=== PATIENT | female | born 1990 | race American Indian/Alaskan Native ===

== ENCOUNTER 2017-06-26 06:27 | Outpatient (CLI) | payer MEDICAID ==
[2017-06-26 06:40] VITALS: BP 114/60
[2017-06-26] MEDS ORDERED: VISTARIL PO PRN (09:00)
== END 2017-06-26 08:37 | disposition home or self-care (01) ==
LOC: TRG 06:27
PROVIDERS: ATTEND Obstetrics & Gynecology
DX: O62.9 Abnormality of forces of labor, unspecified (principal); Z87.891 Personal history of nicotine dependence; Z3A.38 38 weeks gestation of pregnancy
CPT/HCPCS: 59025; Q0177

== ENCOUNTER 2017-06-27 00:52 | Inpatient (IN) | payer MEDICAID ==
[2017-06-27] MEDS ORDERED: LACTATED RINGERS 2,000 ML ONE (01:37)
[2017-06-27] MEDS ORDERED: POLYCILLIN/NS 2 GM/100 ML 2 GM/100 ML BAG IV ONE (01:44)
[2017-06-27] MEDS ORDERED: LACTATED RINGERS 1,000 ML IV SCH ×2 (01:47→03:00)
[2017-06-27] MEDS ORDERED: SUBLIMAZE IV PRN (02:01)
[2017-06-27] MEDS ORDERED: ZOFRAN IV PRN ×2 (02:01→04:44)
[2017-06-27] MEDS ORDERED: BRETHINE IVP PRN (02:01)
[2017-06-27] MEDS ORDERED: MINERAL OIL PO PRN (02:01)
[2017-06-27] MEDS ORDERED: PHENERGAN PR PRN ×2 (02:01→04:44)
[2017-06-27] MEDS ORDERED: BRETHINE SUB-Q PRN (02:01)
[2017-06-27] MEDS ORDERED: STADOL IV PRN (02:01)
[2017-06-27] MEDS ORDERED: ePHEDrine SULFATE IV PRN ×2 (02:01→03:35)
[2017-06-27] MEDS ORDERED: XYLOCAINE 2% INFILTRATI ONE (02:01)
--- NOTE | 2017-06-27 02:27 | History and Physical Report ---
History of Present Illness Date of examination: 06/27/17 Date of admission: 06/27/17 01:20 Chief complaint: 26 yo at term in active labor. Known asthma and sickle trait. A pos, R-I, GBS pos History of present illness: Remainder of H&P from [facility] and confirmed today CC: pelvic pain. History of Present Illness: This is a 26 years old female who presents with pelvic pain. She complains of nausea, but denies dysuria, dysmenorrhea, dyspareunia, vaginal itching, vaginal discharge, vaginal odor, painful bowel movements, constipation , diarrhea, vomiting, back pain and fever. Pain is located suprapubic. She describes the pain as cramping. Episodes are intermittent. OB Intake Father of baby: Buzz Sharp FOB contact #: [phone] Vital Signs Height: 64 in. Weight (lb): 142 BMI: 24.4 Pre- Weight: 142 BP: 112/ 70 mm Hg Ur. Protein: Negative Ur. Glucose: Negative Chief Complaint/Current Status: c/o missed period........................igarcia pt sts she had AB on 09/14/2016 lmp 09/27/2016 Menstrual History Duration: 7 LMP: 09/27/2016 LMP reliability: unknown LMP character: heavier test type: urine test Date: 12/03/2016 BC at conception: none Planned ? no EDC Calculations LMP: 07/04/2017 EDC Confirmation: 07/04/2017 Gestational Age: 9 4/7 weeks Past History : 5 Term Births: 2 Premature Births: 0 Living Children: 2 Para: 2 Mult. Births: 0 Prev : 0 Aborta: 2 Elect. Ab: 1 Spont. Ab: 1 Ectopics: 0 # 1 Delivery date: 2008 Weeks Gestation: 10 Delivery type: SAB Anesthesia type: - Delivery location: - Sex: - weight: - Comments: - # 2 Delivery date: 01/25/2012 Weeks Gestation: 40 labor: no Delivery type: Vaginal Anesthesia type: epidural Delivery location: [facility] Sex: female weight: 6.61 Comments: - # 3 Delivery date: 10/01/2015 Weeks Gestation: 40 labor: no Delivery type: Anesthesia type: epidural Delivery location: [facility] Infant Sex: Female weight: 6.63 Comments: Meconium # 4 Delivery date: 09/14/2016 Delivery type: EAB Past Medical History: Reviewed history from 03/22/2015 and no changes required: Asthma Scikle cell trait + Past Surgical History: negative D&C: (08/2016) Family History Summary: Reviewed history Last on 03/22/2015 and no changes required:12/23/2016 Other family member - Has No Family History of Breast Cancer - Entered On: 2014 Other family member - Has No Family History of Cervical Cancer - Entered On: Other family member - Has No Family History of Colon Cancer - Entered On: 2014 Other family member - Has No Family History of Diabetes - Entered On: 03/22/2015 Other family member - Has No Family History of Hypertension - Entered On: 2014 Other family member - Has No Family History of Ovarvian Cancer - Entered On: General Comments - FH: MGM- Stomach Cancer MGF- stomach Cancer Social History: negative 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 Infection History Hx of STD: chlamydia Personal hx. of genital herpes: no Partner hx. of genital herpes: no Genetic History Congenital Heart Defect: Mom: no Dad: no Rachel Disease: Mom: no Dad: no Thalassemia Mom: no Dad: no Neural Tube Defect Mom: no Dad: no Down's Syndrome Mom: no Dad: no Pj-Sachs Mom: no Dad: no Sickle Cell Disease/Trait Mom: yes Dad: no Hemophilia Mom: no Dad: no Muscular Dystrophy Mom: no Dad: no Cystic Fibrosis Mom: no Dad: no Ba Chorea Mom: no Dad: no Mental Retardation Mom: no Dad: no Fragile X Mom: no Dad: no Other Genetic/Chromosomal Disorder Mom: no Dad: no Child w/other defect Mom: no Dad: no Active Medications (reviewed today): FORMULA 27-1 MG ORAL TABS ( VIT-FE FUMARATE-FA) 1 po q day as directed DICLEGIS 10-10 MG TBEC (DOXYLAMINE-PYRIDOXINE) 2 tabs po qhs Current Allergies (reviewed today): No known allergies Laboratory Results Date/Time Collected: 12/03/2016 Routine Urinalysis Protein: Negative Glucose: Negative Urine HCG: positive Review of Systems General Complains of fatigue. Denies fever, chills, sweats, anorexia, weakness, malaise, weight loss and sleep disorder. Complains of abnormal vaginal bleeding and painful periods. Denies vaginal discharge, incontinence, dysuria, hematuria, urinary frequency, amenorrhea, menorrhagia, pelvic pain, genital sores, decreased libido , painful sex, urinary urgency, hot flashes, vaginal dryness, vaginal itching and vaginal odor. CV Denies chest pains, palpitations, syncope, dyspnea on exertion, orthopnea, PND and peripheral edema. Resp Denies cough, dyspnea at rest, excessive sputum, hemoptysis, wheezing and pleurisy. GI Complains of nausea. Denies vomiting, diarrhea, constipation, change in bowel habits, abdominal pain, melena, hematochezia, jaundice, gas/bloating, indigestion/heartburn, dysphagia and odynophagia. Breast Complains of breast pain. Denies left breast lump, right breast lump, nipple discharge, bloody discharge from nipple, abnormal mammogram and breast enlargement. Psych Denies depression, anxiety, irritability and mood swings. 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 Cervix: normal appearance, no lesions. Uterus: enlarged uterus 8 - 10 weeks size Adnexae: no masses or tenderness Rectovaginal: exam defered Flowsheet View for Follow-up Visit Estimated weeks of gestation: 9 10/05 Weight: 142 Blood pressure: 112 / 70 Urine protein: Negative Urine glucose: Negative Smoking PPD: 3cigs Past History - Obstetrical History : 5 Medications and Allergies Allergies Allergy/AdvReac Type Severity Reaction Status Date / Time latex AdvReac SKIN Verified 02/27/15 10:13 IRRITATION Home Medications Medication Instructions Recorded Confirmed Last Taken Type Naproxen [Naprosyn] 500 mg PO BID #20 tablet 05/06/13 10/02/15 Unknown Rx methOCARBAMOL [Robaxin] 500 mg PO BID PRN #20 tab 05/06/13 10/02/15 Unknown Rx metroNIDAZOLE [Flagyl] 500 mg PO BID #14 tablet 05/06/13 10/02/15 Unknown Rx Cyclobenzaprine [Flexeril 10mg] 10 mg PO BID PRN #6 tablet 09/03/14 10/02/15 Unknown Rx Ibuprofen [Motrin 400 MG tab] 400 mg PO Q8H PRN #10 tablet 09/03/14 10/02/15 Unknown Rx Ranitidine HCl [Zantac] 300 mg PO QDAY #15 tablet 09/03/14 10/02/15 Unknown Rx Famotidine [Pepcid] 20 mg PO BID #40 tablet 03/06/15 10/02/15 Unknown Rx Ondansetron [Zofran TAB] 4 mg PO Q8HR PRN #20 tablet 03/06/15 10/02/15 Unknown Rx Promethazine [Phenergan] 12.5 mg DC Q6H PRN #20 supp.rect 03/06/15 10/02/15 Unknown Rx Active Meds: Active Medications Butorphanol Tartrate (Stadol) 2 mg IV Q2H PRN PRN Reason: Pain , Severe (7-10) Ephedrine Sulfate (Ephedrine Sulfate) 10 mg IV Q2M PRN PRN Reason: Hypotension Fentanyl (Sublimaze) 100 mcg IV Q2H PRN PRN Reason: Labor Pain Last Admin: 12/28/17 02:17 Dose: 100 mcg Ampicillin Sodium (Polycillin/Ns 2 Gm/100 Ml) 2 gm in 100 mls @ 100 mls/hr IV ONCE ONE Stop: 06/27/17 02:43 Last Admin: 06/27/17 02:00 Dose: 100 mls/hr Lactated Ringer's (Lactated Ringers) 1,000 mls @ 125 mls/hr IV DIRECT MAGDALENA Last Admin: 06/27/17 02:18 Dose: 125 mls/hr Oxytocin/Sodium Chloride (Pitocin/Ns 20 Unit/1000ml Drip) 20 units in 1,000 mls @ 125 mls/hr IV DIRECT MAGDALENA Oxytocin/Sodium Chloride (Pitocin/Ns 30 Unit/500ml) 30 units in 500 mls @ 0 mls /hr IV TITR MAGDALENA; Per Protocol PRN Reason: Protocol Oxytocin/Sodium Chloride (Pitocin/Ns 30 Unit/500ml) 30 units in 500 mls @ 1 mls /hr IV TITR MAGDALENA; 1 MILLIUNITS/MIN PRN Reason: Protocol Mineral Oil (Mineral Oil) 30 ml PO QHS PRN PRN Reason: Constipation Ondansetron HCl (Zofran) 4 mg IV Q8H PRN PRN Reason: Nausea And Vomiting Promethazine HCl (Phenergan) 25 mg DC Q6H PRN PRN Reason: N/V if unable to take po Terbutaline Sulfate (Brethine) 0.25 mg SUB-Q ONCE PRN PRN Reason: Hyperstimulation/Hypertonicity Terbutaline Sulfate (Brethine) 0.25 mg IVP ONCE PRN PRN Reason: Hyperstimulation/Hypertonicity - Vital Signs Vital signs: Vital Signs Pulse BP 113 H 103/65 06/27/17 01:08 06/27/17 01:08 Temp Pulse Resp BP Pulse Ox 98.0 F 98 H 18 103/65 100 06/27/17 01:09 06/27/17 02:15 06/27/17 01:09 06/27/17 01:08 06/27/17 02:15 Results All other labs normal. Assessment and Plan - Patient Problems (1) Active labor at term Current Visit: No Status: Acute (2) GBS (group B Streptococcus carrier), +RV culture, currently Current Visit: Yes Status: Acute (3) Sickle cell trait Current Visit: No Status: Chronic (4) Asthma Current Visit: No Status: Chronic Qualifiers: Asthma complication type: uncomplicated
[2017-06-27 02:32] LABS: Hematocrit 32.2 % (30.3-42.9); Hemoglobin 10.5 gm/dl (10.1-14.3); Mean Corpuscular HGB Conc 33 % (30-34); Mean Corpuscular Volume 75 fl (79-97); Platelet Count 221 K/mm3 (140-440); Red Blood Count 4.32 M/mm3 (3.65-5.03); Red Cell Distribution Width 16.4 % (13.2-15.2)
[2017-06-27 02:33] LABS: Mean Corpuscular Hemoglobin 24 pg (28-32)
[2017-06-27] MEDS ORDERED: PITOCin/NS 20 UNIT/1000ML DRIP 20 UNITS/1,000 ML BAG IV SCH (03:00)
[2017-06-27] MEDS ORDERED: PITOCin/NS 30 UNIT/500ML 30 UNITS/500 ML BAG IV SCH ×2 (03:00)
[2017-06-27] MEDS ORDERED: NARCAN 2 MG/2 ML IV PRN (03:35)
--- NOTE | 2017-06-27 03:35 | Anesthesia Consultation ---
Anesthesia Consult and Med Hx Date of service: 06/27/17 - Airway Anesthetic Teeth Evaluation: Good ROM Head & Neck: Adequate Mental/Hyoid Distance: Adequate Mallampati Class: Class II Intubation Access Assessment: Probably Good - Pulmonary Exam CTA: Yes - Cardiac Exam Cardiac Exam: RRR - Pre-Operative Health Status ASA Pre-Surgery Classification: ASA2 Proposed Anesthetic Plan: Epidural, Spinal - Pulmonary Hx Asthma: Yes (last asthamatic attack- 6 yrs ago) COPD: No Hx Pneumonia: No - Cardiovascular System Hx Hypertension: No - Central Nervous System Hx Seizures: No Hx Psychiatric Problems: No - Endocrine Hx Renal Disease: No Hx End Stage Renal Disease: No Hx Hypothyroidism: No Hx Hyperthyroidism: No - Hematic Hx Anemia: Yes Hx Sickle Cell Disease: Yes (trait) - Other Systems Hx Alcohol Use: No Hx Obesity: Yes - Additional Comments Anesthesia Medical History Comments: IUP
[2017-06-27] MEDS ORDERED: fentaNYL-BUPIV 2 MCG/ML-0.125% 200 MCG/100 ML BAG EPIDURAL SCH (04:00)
--- NOTE | 2017-06-27 04:42 | Procedure Note ---
OB Delivery Note - Delivery Date of Delivery: 06/27/17 Surgeon: KAUSHIK MOHAN Estimated blood loss: 300cc - Vaginal Delivery presentation: vertex Delivery position: OA Intrapartum events: mult.variable deceleratio Delivery induction: none Delivery augmentation: rupture of membranes Delivery monitor: external FHT, external uterine Route of delivery: Delivery placenta: spontaneous Delivery cord: 3 umbilical vessels Episiotomy: none Delivery laceration: none Anesthesia: epidural - A at 1 minute: 8 (7#14oz) at 5 minutes: 9 Gender: Male
[2017-06-27] MEDS ORDERED: MILK OF MAGNESIA PO PRN (04:44)
[2017-06-27] MEDS ORDERED: PHENERGAN PO PRN (04:44)
[2017-06-27] MEDS ORDERED: TUCKS PAD TP PRN (04:44)
[2017-06-27] MEDS ORDERED: LANSINOH TP PRN (04:44)
[2017-06-27] MEDS ORDERED: TYLENOL PO PRN (04:44)
[2017-06-27] MEDS ORDERED: DULCOLAX PR PRN (04:44)
[2017-06-27] MEDS ORDERED: BENADRYL PO PRN (04:44)
[2017-06-27] MEDS ORDERED: SODIUM CHLORIDE FLUSH SYRINGE 10 ML IV PRN (05:00)
[2017-06-27] MEDS: NORCO 5/325 PO PRN ×3 (08:57→22:30)
[2017-06-27 16:47] LABS: Hematocrit 26.6 % (30.3-42.9); Hemoglobin 8.5 gm/dl (10.1-14.3)
[2017-06-27] MEDS: MOTRIN PO SCH ×2 (18:02→23:41)
[2017-06-28] MEDS: MOTRIN PO SCH ×4 (05:13→23:34)
[2017-06-28] MEDS ORDERED: BOOSTRIX IM ONE (06:00)
--- NOTE | 2017-06-28 08:13 | Progress Note ---
Assessment and Plan patient doing well, no complaints, desires d/c home today. without concern. VSSAF. H&H droped to 8.5/26.6, pt is asymptomatic. acute anemia d/t blood loss. Lochia scant. Plan for d/c home today with routine f/u in office. - Patient Problems (1) Spontaneous vaginal delivery Current Visit: No Status: Acute Subjective - Subjective Date of service: 06/28/17 Principal diagnosis: day #1 s/p Patient reports: appetite normal, voiding normally, pain well controlled, ambulating normally, no dizzy ambulation, no nauseated [place]: doing well, nursing well Objective - Vital Signs Latest vital signs: Vital Signs Temp Pulse Resp BP BP Pulse Ox 06/28/17 00:20 98.0 F 69 18 90/49 06/27/17 22:30 18 06/27/17 16:49 98.6 F 72 18 101/51 99 06/27/17 08:33 98.3 F 89 18 103/52 98 Intake and Output 06/27/17 06/28/17 06/28/17 23:59 07:59 15:59 Intake Total 740 240 Balance 740 240 Intake: Oral 600 240 Intake, Free Water 140 Other: Total, Intake Amount 240 240 # Voids Indwelling Catheter 2 1 - Exam Breasts: Present: normal Cardiovascular: Present: Regular rate Lungs: Present: Clear to auscultation, Normal air movement Abdomen: Present: normal appearance, soft Vulva: both: normal Uterus: Present: normal, firm, fundal height at umbilicus Extremities: Present: normal Deep Tendon Reflex Grade: Normal +2 - Labs Labs: Abnormal lab results 06/27/17 Range/Units 16:11 Hgb 8.5 L (10.1-14.3) gm/dl Hct 26.6 L (30.3-42.9) %
--- NOTE | 2017-06-28 08:15 | Discharge Summary ---
Providers - Providers Date of Admission: 06/27/17 01:20 Date of discharge: 06/28/17 (desires d/c home) Attending physician: KAUSHIK MOHAN 06/27/17 04:47 Consult to Physical Chemistry Teacher [CONS] Routine Reason For Exam: assistance with , SNS Primary care physician: KAUSHIK MOHAN Hospitalization Reason for admission: active labor Delivery: Episiotomy: none Laceration: none Other procedures: none complications: none Discharge diagnosis: IUP at term delivered baby: male Hospital course: uncomplicated vaginal delivery Condition at discharge: Good Disposition: DC-01 TO HOME OR SELFCARE - Discharge Diagnoses (1) Spontaneous vaginal delivery Status: Acute Comment: RTO 4 weeks for PP care Plan - Discharge Medications Prescriptions: Ferrous Sulfate [Feosol 325 MG tab] 325 mg PO TID #90 tablet Ibuprofen [Motrin 600 MG tab] 600 mg PO Q8H PRN #30 tablet PRN Reason: Pain Lidocain2.5%/Prilocai2.5% [Emla] 5 gm TP 1XW #1 tube - Provider Discharge Summary Activity: routine, no sex for 6 weeks, no heavy lifting 4 weeks, no strenuous exercise Diet: routine Instructions: routine Additional instructions: [] Smoking cessation referral if applicable(refer to patient education folder for contact #) [] Refer to [facility] Booklet Call your doctor immediately for: * Fever > 100.5 * Heavy vaginal bleeding ( >1 pad per hour) * Severe persistent headache * Shortness of breath * Reddened, hot, painful area to leg or breast * Drainage or odor from incision. * Keep incision clean and dry at all times and follow doctor's instructions regarding bathing/showering - Follow up plan Follow up: KAUSHIK MOHAN MD [Primary Care Provider] - 7 Days (Congratulations! Please call [phone] to schedule your son's circumcision in 1 week and your visit in 4 weeks. Bring EMLA cream to your son's appointment and await further instructions. Call for any questions or concerns. )
[2017-06-28] MEDS: NORCO 5/325 PO PRN (12:25)
[2017-06-29] MEDS: MOTRIN PO SCH (05:21)
[2017-06-29 12:14] VITALS: BP 107/71
== END 2017-06-29 12:15 | disposition home or self-care (01) | DRG 775 ==
LOC: TRG 00:52 → LD 01:20 → TRG 01:20 → OB 06:45
PROVIDERS: ADMIT Obstetrics & Gynecology; ATTEND Obstetrics & Gynecology
PROC: 10E0XZZ Delivery of Products of Conception, External Approach (ICD-10-PCS; principal; 2017-06-27)
PROC: 3E0R3BZ Introduction of Anesthetic Agent into Spinal Canal, Percutaneous Approach (ICD-10-PCS; 2017-06-27)
PROC: 00HU33Z Insertion of Infusion Device into Spinal Canal, Percutaneous Approach (ICD-10-PCS; 2017-06-27)
DX: O99.824 Streptococcus B carrier state complicating childbirth (principal); Z3A.00 Weeks of gestation of pregnancy not specified; Z37.0 Single live birth; O99.02 Anemia complicating childbirth; D57.3 Sickle-cell trait; D62 Acute posthemorrhagic anemia; O99.52 Diseases of the respiratory system complicating childbirth; J45.909 Unspecified asthma, uncomplicated; O76 Abnormality in fetal heart rate and rhythm complicating labor and delivery; O99.214 Obesity complicating childbirth; E66.9 Obesity, unspecified; Z80.8 Family history of malignant neoplasm of other organs or systems; Z91.040 Latex allergy status; Z79.899 Other long term (current) drug therapy; Z68.30 Body mass index [BMI] 30.0-30.9, adult
CPT/HCPCS: 36415; 85014; 85018; 85027; 86592; 86850; 86900; 86901; 90471; 90715; 99211; G0463; J0290; J2590; J3010; J7120

== ENCOUNTER 2017-07-09 07:51 | Inpatient (IN) | payer MEDICAID ==
--- NOTE | 2017-07-09 08:43 | Cat Scan Report ---
CT HEAD WITHOUT CONTRAST: HISTORY: neurological deficits. TECHNIQUE: Sequential 2.5mm CT images. COMPARISON: none. FINDINGS: Cerebral Parenchyma: Within normal limits. Cerebellum: Within normal limits. Brainstem: Within normal limits. Ventricles: Normal. Sella: Normal. Extra-axial spaces: Normal. Basal Cisterns: Normal. Intracranial Hemorrhage: None. Midline Shift: None. Calvarium: Normal. Sinuses: Normal. Mastoid Air Cells: Normal. Visualized Orbits: Normal. IMPRESSION: Cranial CT scan within normal limits.
[2017-07-09 10:20] LABS: Basophils % (Auto) 0.5 % (0.0-1.8); Eosinophils # (Auto) 0.1 K/mm3 (0.0-0.4); Eosinophils % (Auto) 0.9 % (0.0-4.3); Hematocrit 38.3 % (30.3-42.9); Hemoglobin 12.2 gm/dl (10.1-14.3); Lymphocytes # (Auto) 1.9 K/mm3 (1.2-5.4); Lymphocytes % (Auto) 21.2 % (13.4-35.0); Mean Corpuscular HGB Conc 32 % (30-34); Mean Corpuscular Volume 74 fl (79-97); Monocytes # (Auto) 0.4 K/mm3 (0.0-0.8); Monocytes % (Auto) 4.3 % (0.0-7.3); Platelet Count 273 K/mm3 (140-440); Red Blood Count 5.15 M/mm3 (3.65-5.03); Red Cell Distribution Width 16.3 % (13.2-15.2)
[2017-07-09 10:30] LABS: INR 0.88 (0.87-1.13)
[2017-07-09 10:31] LABS: BUN/Creatinine Ratio 16; Blood Urea Nitrogen 11 mg/dL (7-17); Calcium 8.6 mg/dL (8.4-10.2); Hemolysis Index 6; Mean Corpuscular Hemoglobin 24 pg (28-32); Partial Thromboplastin Time 27.2 Sec. (24.2-36.6)
[2017-07-09 10:32] LABS: Alanine Aminotransferase 13 units/L (7-56); Albumin 3.9 g/dL (3.9-5)
[2017-07-09 10:37] LABS: Bilirubin,Direct < 0.2 mg/dL (0-0.2)
[2017-07-09] MEDS ORDERED: ATIVAN ONE (11:51)
[2017-07-09] MEDS ORDERED: ATIVAN IV ONE ×2 (11:56→12:02)
[2017-07-09] MEDS ORDERED: MAGNESIUM SULFATE 2GM/50ML 2 GM/50 ML BAG IV ONE (11:57)
[2017-07-09] MEDS ORDERED: MAGNESIUM SULFATE 4GM/100ML 4 GM/100 ML BAG IV ONE (12:00)
[2017-07-09] MEDS ORDERED: MAGNESIUM SULFATE 40GM/1000ML 40 GM/1,000 ML BAG IV ONE (12:00)
--- NOTE | 2017-07-09 12:11 | Emergency Department Report ---
ED Headache HPI - General Chief Complaint: Dizziness Stated Complaint: DIZZINESS, HUTSON, POST PREG Time Seen by Provider: 07/09/17 11:56 Source: family, RN notes reviewed, old records Exam Limitations: other (ams postictal) - History of Present Illness Initial Comments: 26 yo female with a past medical history of asthma who is currently 2 weeks presented to the hospital complaints of dizziness and headache. Patient did have an epidural. I was called to room because patient was seizing. I did not have opportunity to speak to patient prior to mental status deterioration. Family member (boyfriends grandmother) at the bedside states that patient developed a headache this morning with complaints of dizziness and blurred vision. Blood pressure status during her unknown. No known history of high blood pressure. Patient post ictal upon my evaluation then became agitated and confused and required IV Ativan. Mag drip ordered. Dr. Dr Mccarty with HOME CARE NURSE contacted for Eclampsia Medical record review. Patient delivered here. No previous hypertension noted on pervious vital sign Allergies/Adverse Reactions: Allergies latex Adverse Reaction (Verified 02/27/15 10:13) SKIN IRRITATION Home Medications: Ambulatory Orders No Known Home Medications [No Reported Home Medications] 07/09/17 ED Review of Systems ROS: Stated complaint: DIZZINESS, HUTSON, POST PREG Other details as noted in HPI Comment: Unobtainable due to pts medical conditions ED Past Medical Hx - Past Medical History Previous Medical History?: Yes Hx Hypertension: No Hx Congestive Heart Failure: No Hx Diabetes: No Hx Deep Vein Thrombosis: No Hx Renal Disease: No Hx Sickle Cell Disease: Yes (trait) Hx Seizures: No Hx Asthma: Yes (last asthamatic attack- 6 yrs ago) Hx COPD: No Hx HIV: No Additional medical history: HEART MURMUR, Vaginal delivery - Surgical History Past Surgical History?: No - Social History Smoking Status: Never Smoker Substance Use Type: Non Opiate Pain - Medications Home Medications: Home Medications Medication Instructions Recorded Confirmed Last Taken Type No Known Home Medications [No 07/09/17 07/09/17 Unknown History Reported Home Medications] ED Physical Exam - General Limitations: No Limitations - Other Other exam information: General: Limited, post ictal Head exam: Atraumatic Eyes exam: Normal appearance, pupils equal reactive to light ENT: Moist mucous membrane, normal oropharynx Neck exam: Normal inspection, full range of motion, no meningismus nontender Respiratory exam: Clear to auscultation bilateral Cardiovascular: Tachycardic regular rhythm Abdomen: Soft, nondistended, and nontender, with normal bowel sounds, no rebound, or guarding Extremity: Full range of motion normal inspection no deformity Back: Normal Inspection, full range of motion, no tenderness Neurologic: Altered, combative, 5/5 strength bilaterally (pt required restraints ), sensation grossly intact Psychiatric: normal affect, normal mood Skin: Warm, dry, intact ED Course Vital Signs 07/09/17 07/09/17 07/09/17 08:00 11:31 12:15 Temperature 98.1 F 98.9 F Pulse Rate 84 79 113 H Respiratory 18 18 22 Rate Blood Pressure 140/102 Blood Pressure 141/98 118/83 [Left] O2 Sat by Pulse 98 100 96 Oximetry 07/09/17 07/09/17 07/09/17 13:00 13:30 14:00 Temperature Pulse Rate 93 H 92 H 99 H Respiratory 15 16 19 Rate Blood Pressure Blood Pressure 144/88 135/88 121/79 [Left] O2 Sat by Pulse 96 97 97 Oximetry 07/09/17 07/09/17 07/09/17 15:00 17:00 18:00 Temperature Pulse Rate 92 H 80 78 Respiratory 14 11 L 13 Rate Blood Pressure Blood Pressure 114/57 113/87 127/79 [Left] O2 Sat by Pulse 97 98 99 Oximetry 07/09/17 19:27 Temperature 98.6 F Pulse Rate 81 Respiratory 14 Rate Blood Pressure Blood Pressure 130/81 [Left] O2 Sat by Pulse 99 Oximetry - Reevaluation(s) Reevaluation #1: 07/09/17 12:12 Ativan given. Magnesium bolus and drip ordered - Consultations Consultation #1: 07/09/17 12:07 Dr Mccarty in Ed to mukul pt. ED Medical Decision Making - Lab Data Result diagrams: 07/09/17 09:40 07/09/17 09:40 Lab Results 07/09/17 07/09/17 07/09/17 Range/Units 09:40 09:40 09:40 WBC 8.9 (4.5-11.0) K/mm3 RBC 5.15 H (3.65-5.03) M/mm3 Hgb 12.2 (10.1-14.3) gm/dl Hct 38.3 (30.3-42.9) % MCV 74 L (79-97) fl MCH 24 L (28-32) pg MCHC 32 (30-34) % RDW 16.3 H (13.2-15.2) % Plt Count 273 (140-440) K/mm3 Lymph % (Auto) 21.2 (13.4-35.0) % [place] % (Auto) 4.3 (0.0-7.3) % Eos % (Auto) 0.9 (0.0-4.3) % Baso % (Auto) 0.5 (0.0-1.8) % Lymph # 1.9 (1.2-5.4) K/mm3 [place] # 0.4 (0.0-0.8) K/mm3 Eos # 0.1 (0.0-0.4) K/mm3 Baso # 0.0 (0.0-0.1) K/mm3 Seg Neutrophils % 73.1 H (40.0-70.0) % Seg Neutrophils # 6.5 (1.8-7.7) K/mm3 PT 12.4 (12.2-14.9) Sec. INR 0.88 (0.87-1.13) APTT 27.2 (24.2-36.6) Sec. Thrombin Time (15.1-19.6) Sec. Sodium 140 (137-145) mmol/L Potassium 4.1 (3.6-5.0) mmol/L Chloride 104.0 (98-107) mmol/L Carbon Dioxide 23 (22-30) mmol/L Anion Gap 17 mmol/L BUN 11 (7-17) mg/dL Creatinine 0.7 (0.7-1.2) mg/dL Estimated GFR > 60 ml/min BUN/Creatinine Ratio 16 % Glucose 85 (65-100) mg/dL Calcium 8.6 (8.4-10.2) mg/dL Total Bilirubin (0.1-1.2) mg/dL Direct Bilirubin (0-0.2) mg/dL AST (5-40) units/L ALT (7-56) units/L Alkaline Phosphatase (35-129) units/L Lactate Dehydrogenase (91-180) units/L Troponin T < 0.010 (0.00-0.029) ng/mL Total Protein (6.3-8.2) g/dL Albumin (3.9-5) g/dL Albumin/Globulin Ratio % 07/09/17 07/09/17 Range/Units 09:40 09:40 WBC (4.5-11.0) K/mm3 RBC (3.65-5.03) M/mm3 Hgb (10.1-14.3) gm/dl Hct (30.3-42.9) % MCV (79-97) fl MCH (28-32) pg MCHC (30-34) % RDW (13.2-15.2) % Plt Count (140-440) K/mm3 Lymph % (Auto) (13.4-35.0) % [place] % (Auto) (0.0-7.3) % Eos % (Auto) (0.0-4.3) % Baso % (Auto) (0.0-1.8) % Lymph # (1.2-5.4) K/mm3 [place] # (0.0-0.8) K/mm3 Eos # (0.0-0.4) K/mm3 Baso # (0.0-0.1) K/mm3 Seg Neutrophils % (40.0-70.0) % Seg Neutrophils # (1.8-7.7) K/mm3 PT (12.2-14.9) Sec. INR (0.87-1.13) APTT (24.2-36.6) Sec. Thrombin Time 15.6 (15.1-19.6) Sec. Sodium (137-145) mmol/L Potassium (3.6-5.0) mmol/L Chloride (98-107) mmol/L Carbon Dioxide (22-30) mmol/L Anion Gap mmol/L BUN (7-17) mg/dL Creatinine (0.7-1.2) mg/dL Estimated GFR ml/min BUN/Creatinine Ratio % Glucose (65-100) mg/dL Calcium (8.4-10.2) mg/dL Total Bilirubin 0.20 (0.1-1.2) mg/dL Direct Bilirubin < 0.2 (0-0.2) mg/dL AST 17 (5-40) units/L ALT 13 (7-56) units/L Alkaline Phosphatase 101 (35-129) units/L Lactate Dehydrogenase 214 H (91-180) units/L Troponin T (0.00-0.029) ng/mL Total Protein 8.0 (6.3-8.2) g/dL Albumin 3.9 (3.9-5) g/dL Albumin/Globulin Ratio 1.0 % - EKG Data -: EKG Interpreted by Me EKG shows normal: sinus rhythm, axis (59), QRS complexes (81), ST-T waves (no stemi/t inv) Rate: normal (72) - EKG Data When compared to previous EKG there are: no significant change (09/03/14) - Radiology Data Radiology results: report reviewed CT head: No acute findings - Medical Decision Making Patient requires ICU admission for cramps. Treatment initiated ED. HOME CARE NURSE informed and will admit - Differential Diagnosis migraine, eclampsia, post epidural headache, ICH, preeclampsia, seizure Critical Care Time: No Critical care attestation.: If time is entered above; I have spent that time in minutes in the direct care of this critically ill patient, excluding procedure time. ED Disposition Clinical Impression: eclampsia Disposition: OP ADMIT IP TO THIS HOSP Is pt being admited?: Yes Condition: Stable Time of Disposition: 12:13 (Dr Mccarty/quill machine tender)
[2017-07-09] MEDS ORDERED: DILAUDID IV ONE (12:33)
[2017-07-09] MEDS ORDERED: ZOFRAN IV ONE (12:34)
[2017-07-09] MEDS ORDERED: DILAUDID IV NR (13:00)
--- NOTE | 2017-07-09 14:25 | History and Physical Report ---
History of Present Illness Date of examination: 07/09/17 Date of admission: 07/09/17 12:12 Chief complaint: Eclampsia History of present illness: This is a 26-year-old female status post vaginal delivery June 27 2017. She presented to the ED with a one-week history of severe headache that became progressively worse and associated with visual changes. During her evaluation in the ED she was noted to have elevated blood pressures and had a witnessed seizure. She is admitted now for evaluation and management of eclampsia. Past History : 5 Term Births: 3 Premature Births: 0 Living Children: 3 Para: 3 Mult. Births: 0 Prev : 0 Aborta: 2 Elect. Ab: 1 Spont. Ab: 1 Ectopics: 0 # 1 Delivery date: 2008 Weeks Gestation: 10 Delivery type: SAB Anesthesia type: - Delivery location: - Sex: - weight: - Comments: - # 2 Delivery date: 01/25/2012 Weeks Gestation: 40 labor: no Delivery type: Vaginal Anesthesia type: epidural Delivery location: [facility] Sex: female weight: 6.61 Comments: - # 3 Delivery date: 10/01/2015 Weeks Gestation: 40 labor: no Delivery type: Anesthesia type: epidural Delivery location: [facility] Sex: Female weight: 6.63 Comments: Meconium # 4 Delivery date: 09/14/2016 Delivery type: EAB #5 Delivery Date: 06/27/2017 Gestational Age: 39 weeks Anesthesia: epidural Delivery Type: Vaginal Weight: 7.88 lbs Gender: male Location: [facility] - 1 minute: 8; 5 minutes: 9 Past Medical History: Reviewed history from 03/22/2015 and no changes required: Asthma Sickle cell trait + Past Surgical History: negative D&C: (08/2016) Family History Summary: Reviewed history Last on 03/22/2015 and no changes required:12/23/2016 Other family member - Has No Family History of Breast Cancer - Entered On: 2014 Other family member - Has No Family History of Cervical Cancer - Entered On: Other family member - Has No Family History of Colon Cancer - Entered On: 2014 Other family member - Has No Family History of Diabetes - Entered On: 03/22/2015 Other family member - Has No Family History of Hypertension - Entered On: 2014 Other family member - Has No Family History of Ovarvian Cancer - Entered On: General Comments - FH: MGM- Stomach Cancer MGF- stomach Cancer Social History: negative 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: Smoked Tobacco Use: Current every day smoker Cigarettes: Yes -- 3cigs pack(s) per day, Year started: 2009 Counseled to quit/cut down: yes Drug use: yes Alcohol use: yes Drinks per day: social Dietary Counseling: pn yes Past Medical History Surgery (Non-obstetrics and gynecology professor): negative D&C: (08/2016) Abnormal PAP: positive, 01/2015 HPV+ RUBINA Exposure: negative Infertility: negative Uterine Anomaly: negative Uterine Surgery (not C/S): negative Other Gynecologic Problems: negative Social Hx: negative 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 of genital herpes: no Partner hx. of genital herpes: no Genetic History Congenital Heart Defect: Mom: no Dad: no Rachel Disease: Mom: no Dad: no Thalassemia Mom: no Dad: no Neural Tube Defect Mom: no Dad: no Down's Syndrome Mom: no Dad: no Pj-Sachs Mom: no Dad: no Sickle Cell Disease/Trait Mom: yes Dad: no Hemophilia Mom: no Dad: no Muscular Dystrophy Mom: no Dad: no Cystic Fibrosis Mom: no Dad: no Curry Chorea Mom: no Dad: no Mental Retardation Mom: no Dad: no Fragile X Mom: no Dad: no Other Genetic/Chromosomal Disorder Mom: no Dad: no Child w/other defect Mom: no Dad: no Active Medications (reviewed today): FORMULA 27-1 MG ORAL TABS ( VIT-FE FUMARATE-FA) 1 po q day as directed Current Allergies (reviewed today): No known allergies Medications and Allergies Allergies Allergy/AdvReac Type Severity Reaction Status Date / Time latex AdvReac SKIN Verified 02/27/15 10:13 IRRITATION Home Medications Medication Instructions Recorded Confirmed Last Taken Type No Known Home Medications [No 07/09/17 07/09/17 Unknown History Reported Home Medications] Active Meds: Active Medications Hydromorphone HCl (Dilaudid) 0.5 mg IV ONCE.ED NR Stop: 07/09/17 14:40 Magnesium Sulfate (Magnesium Sulfate 40gm/1000ml) 40 gm in 1,000 mls @ 50 mls/ hr IV ONCE.ED ONE PRN Reason: 2 GM/HR Stop: 07/10/17 07:59 Last Admin: 07/09/17 13:41 Dose: 2 gm/hr, 50 mls/hr Review of Systems All systems: negative Constitutional: chronic headaches Eyes: bilateral: blurred vision Exam - Physical Exam Narrative exam: Initially patient was postictal excessively agitated. She was restrained and given 2 mg of Ativan IV. Patient was lethargic after the Ativan IV. She was appropriately responsive while awake. Follow commands appropriately once restraints were removed. States her headache is much better. - Constitutional Vitals: Temp Pulse Resp BP Pulse Ox 98.9 F 92 H 16 135/88 97 07/09/17 11:31 07/09/17 13:30 07/09/17 13:30 07/09/17 13:30 07/09/17 13:30 General appearance: Present: other - Respiratory Respiratory effort: normal - Cardiovascular Rhythm: regular - Abdominal General gastrointestinal: Present: soft, non-tender (unable to palpate uterus) Female genitourinary: Present: deferred - Integumentary Integumentary: Present: warm, dry - Psychiatric Psychiatric: appropriate mood/affect, intact judgment & insight - Neurologic Neurologic: moves all extremities, other (DTRs brisk, no clonus) Results - Labs CBC & Chem 7: 07/09/17 09:40 07/09/17 09:40 Labs: Abnormal lab results 07/09/17 07/09/17 Range/Units 09:40 09:40 RBC 5.15 H (3.65-5.03) M/mm3 MCV 74 L (79-97) fl MCH 24 L (28-32) pg RDW 16.3 H (13.2-15.2) % Seg Neutrophils % 73.1 H (40.0-70.0) % Lactate Dehydrogenase 214 H (91-180) units/L - Imaging and Cardiology CT Scan - head: report reviewed Assessment and Plan - Patient Problems (1) Eclampsia Current Visit: Yes Status: Acute Plan to address problem: Hypertensive/preeclampsia protocol started. Continue magnesium sulfate for 24 hours Strict I's and O's Magnesium levels every 6 hours to keep level less than or equal to 6.5 Patient is admitted to the CCU until stable. Observe closely and start antihypertensives for blood pressure 160/100 or greater. Circus Artist consult (2) Spontaneous vaginal delivery Current Visit: No Status: Acute
--- NOTE | 2017-07-09 14:48 | Consultation ---
History of Present Illness Consult date: 07/09/17 Requesting physician: MADISON MCCARTY Reason for consult: other (eclampsia, seizures) History of present illness: 26 yo female with a past medical history of asthma who is currently 2 weeks presented to the hospital complaints of dizziness and headache. Patient did have an epidural. I was called to room because patient was seizing. I did not have opportunity to speak to patient prior to mental status deterioration. Family member (boyfriends grandmother) at the bedside states that patient developed a headache this morning with complaints of dizziness and blurred vision. Blood pressure status during her unknown. No known history of high blood pressure. Patient post ictal upon my evaluation then became agitated and confused and required IV Ativan. Mag drip ordered. Dr. Dr Mccarty with [employer] contacted for Eclampsia Dr. Mccarty called me to evaluate patient. Patient seen and examained. Vitals, labs, medications, chart reviewed. 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 Tobacco Use: Current every day smoker Cigarettes: Yes -- 3cigs pack(s) per day, Year started: 2009 Counseled to quit/cut down: yes Drug use: yes Alcohol use: yes Drinks per day: social Past Medical History Surgery (Non-support assistant): negative D&C: (08/2016) Abnormal PAP: positive, 01/2015 HPV+ RUBINA Exposure: negative Infertility: negative Uterine Anomaly: negative Uterine Surgery (not C/S): negative Other Gynecologic Problems: negative Medications and Allergies Allergies Allergy/AdvReac Type Severity Reaction Status Date / Time latex AdvReac SKIN Verified 02/27/15 10:13 IRRITATION Home Medications Medication Instructions Recorded Confirmed Last Taken Type No Known Home Medications [No 07/09/17 07/09/17 Unknown History Reported Home Medications] Active Meds: Active Medications Magnesium Sulfate (Magnesium Sulfate 40gm/1000ml) 40 gm in 1,000 mls @ 50 mls/ hr IV ONCE.ED ONE PRN Reason: 2 GM/HR Stop: 07/10/17 07:59 Last Admin: 07/09/17 13:41 Dose: 2 gm/hr, 50 mls/hr HOME MEDICATIONS Naproxen [Naprosyn] 500 mg PO BID #20 tablet 05/06/13 methOCARBAMOL [Robaxin] 500 mg PO BID PRN #20 tab 05/06/13 metroNIDAZOLE [Flagyl] 500 mg PO BID #14 tablet 05/06/13 Cyclobenzaprine [Flexeril 10mg] 10 mg PO BID PRN #6 tablet 09/03/14 Ibuprofen [Motrin 400 MG tab] 400 mg PO Q8H PRN #10 tablet 09/03/14 Ranitidine HCl [Zantac] 300 mg PO QDAY #15 tablet 09/03/14 Famotidine [Pepcid] 20 mg PO BID #40 tablet 03/06/15 Ondansetron [Zofran TAB] 4 mg PO Q8HR PRN #20 tablet 03/06/15 Promethazine [Phenergan] 12.5 mg OR Q6H PRN #20 supp.rect 03/06/15 Ibuprofen [Motrin 600 MG tab] 600 mg PO Q8H PRN #30 tablet 06/27/17 Lidocain2.5%/Prilocai2.5% [Emla] 5 gm TP 1XW #1 tube 06/27/17 Ferrous Sulfate [Feosol 325 MG tab] 325 mg PO TID #90 tablet 06/28/17 Physical Examination Vital signs: Vital Signs Temp Pulse Resp BP Pulse Ox 98.1 F 84 18 140/102 98 07/09/17 08:00 07/09/17 08:00 07/09/17 08:00 07/09/17 08:00 07/09/17 08:00 General appearance: no acute distress, other (somnloent but obeys commands) Eyes: non-icteric ENT: oropharynx moist Neck: supple, no lymphadenopathy, no JVD Effort: normal Ascultation: Bilateral: clear Cardiovascular: regular rate and rhythm, other (S1,S2, no murmurs, gallops or rubs) Gastrointestinal: normoactive bowel sounds, soft, non-tender, non-distended Integumentary: normal Extremities: no cyanosis, no edema, pink and warm, pulses normal, no ischemia or petechiae Musculoskeletal: no deformities non-focal exam, pupils equal and round, CN II-XII normal, motor strength normal and mood appropriate Results - Laboratory Findings CBC and BMP: 07/09/17 09:40 07/09/17 09:40 PT/INR, D-dimer PT 12.4 Sec. (12.2-14.9) 07/09/17 09:40 INR 0.88 (0.87-1.13) 07/09/17 09:40 Abnormal lab findings: Abnormal Labs 07/09/17 07/09/17 09:40 09:40 RBC 5.15 H MCV 74 L MCH 24 L RDW 16.3 H Seg Neutrophils % 73.1 H Lactate Dehydrogenase 214 H - Diagnostic Findings Additional studies: CT head negative for mass, shift or bleed Assessment and Plan Seizures Eclampsia Tobacco abuse disorder -Agree for admission, however, with better blood pressure control, no need for IV antihypertensives and no further seizures, can admit the mother/baby unit and we will follow her closely. -Get CMP to evaluate liver enzymes, monitor hemodynamics -Serum Magnesium ,keep it at 4 and monitor closely -Smoking cessation counselling Will follow with you. Dr. Mccarty called. - Patient Problems (1) Eclampsia Current Visit: Yes Status: Acute Plan to address problem: Blood pressure control magnesium
[2017-07-09] MEDS ORDERED: ALUM-MAG HYDROX-SIMETH 200-200-20MG/5ML PO PRN (17:47)
[2017-07-09] MEDS ORDERED: MAGNESIUM SULFATE 40GM/1000ML 40 GM/1,000 ML BAG IV SCH (17:47)
[2017-07-09] MEDS ORDERED: DULCOLAX PR PRN (17:47)
[2017-07-09] MEDS ORDERED: MILK OF MAGNESIA PO PRN (17:47)
[2017-07-09] MEDS ORDERED: LACTATED RINGERS 1,000 ML IV SCH (17:47)
[2017-07-09 20:52] LABS: Amphetamine Screen,Urine PRESUMPTIVE NEGATIVE; Benzodiazepines Screen,Urine PRESUMPTIVE NEGATIVE; Cannabinoid Screen,Urine PRESUMPTIVE NEGATIVE; Cocaine Screen,Urine PRESUMPTIVE NEGATIVE; Methadone Screen,Urine PRESUMPTIVE NEGATIVE; Opiate Screen,Urine PRESUMPTIVE NEGATIVE
[2017-07-09 22:39] LABS: Bilirubin,Urine NEG (Negative); Blood,Urine MOD (Negative); Color,Urine Yellow (Yellow); Mucus,Urine FEW /HPF; Nitrite,Urine NEG (Negative); Protein,Urine <15 mg/dL mg/dL (Negative); Urobilinogen,Urine < 2.0 mg/dL (<2.0)
--- NOTE | 2017-07-10 06:00 | Progress Note ---
Assessment and Plan - Patient Problems (1) eclampsia Onset Date: ~07/09/17 Current Visit: Yes Status: Acute Plan to address problem: 26yo 13 days s/p vaginal delivery now in ED s/p eclamptic seizure. A&O X 3. BP 115-113/80s DTRs wnl. MGSO4 infusing @ 2gm/hr. Clear yellow urine noted in [place]. Output total not documented at this time. Waiting on 0530 Mag level. Pt appears stable s/p seizure 13 days . P: continue present therapy Waiting on room. Pt encouraged to use breast pump. All questions addressed. Will consult with supervisor production managing MD. Subjective - Subjective Date of service: 07/10/17 (pt remains in ED s/p eclamptic seizure) Principal diagnosis: Postpatum Eclamptic; S/P 13 days Patient reports: voiding normally (clear yellow urine in [place] bag) Objective - Vital Signs Latest vital signs: Vital Signs Temp Pulse Resp BP BP Pulse Ox 07/10/17 05:31 72 13 92/58 98 07/10/17 05:15 77 12 92/58 98 07/10/17 05:00 75 12 105/56 98 07/10/17 04:45 68 10 L 100/61 98 07/10/17 04:30 75 12 106/66 97 07/10/17 04:15 77 12 106/66 97 07/10/17 04:00 88 13 113/72 97 07/10/17 03:45 79 9 L 113/72 98 07/10/17 03:30 82 13 111/69 97 07/10/17 03:15 76 13 111/69 97 07/10/17 03:00 77 13 112/69 99 07/10/17 02:45 78 13 112/69 97 07/10/17 02:30 88 12 113/66 97 07/10/17 02:15 90 15 113/66 98 07/10/17 02:00 80 13 115/72 96 07/10/17 01:45 78 13 115/72 97 07/10/17 01:30 79 13 122/83 96 07/10/17 01:15 81 11 L 122/83 97 07/10/17 01:00 85 14 121/70 96 07/10/17 00:45 81 14 121/70 96 07/10/17 00:34 84 14 116/72 96 07/09/17 19:27 98.6 F 81 14 130/81 99 07/09/17 18:00 78 13 127/79 99 07/09/17 17:00 80 11 L 113/87 98 07/09/17 15:00 92 H 14 114/57 97 07/09/17 14:00 99 H 19 121/79 97 07/09/17 13:30 92 H 16 135/88 97 07/09/17 13:00 93 H 15 144/88 96 07/09/17 12:15 113 H 22 118/83 96 07/09/17 11:31 98.9 F 79 18 141/98 100 07/09/17 08:00 98.1 F 84 18 140/102 98 Intake and Output 07/09/17 07/09/17 07/10/17 14:59 22:59 06:59 Other: Weight 162 lb 0.636 oz Patient Weight 07/10/17 06:59 Weight 162 lb 0.636 oz - Exam Breasts: Present: other (filling Pt has breast pump declines use now; "I want to sleep some more.") Cardiovascular: Present: Regular rate Lungs: Present: Clear to auscultation, Normal air movement Abdomen: Present: normal appearance, soft Uterus: Present: normal Extremities: Present: normal Deep Tendon Reflex Grade: Normal +2 - Labs Labs: Abnormal lab results 07/09/17 07/09/17 07/09/17 Range/Units 09:40 09:40 22:05 RBC 5.15 H (3.65-5.03) M/mm3 MCV 74 L (79-97) fl MCH 24 L (28-32) pg RDW 16.3 H (13.2-15.2) % Seg Neutrophils % 73.1 H (40.0-70.0) % Magnesium (1.7-2.3) mg/dL Lactate Dehydrogenase 214 H (91-180) units/L Urine WBC (Auto) 8.0 H (0.0-6.0) /HPF 07/09/17 Range/Units 23:57 RBC (3.65-5.03) M/mm3 MCV (79-97) fl MCH (28-32) pg RDW (13.2-15.2) % Seg Neutrophils % (40.0-70.0) % Magnesium 5.50 H (1.7-2.3) mg/dL Lactate Dehydrogenase (91-180) units/L Urine WBC (Auto) (0.0-6.0) /HPF
[2017-07-10] MEDS ORDERED: LANSINOH TP PRN (08:38)
[2017-07-10] MEDS ORDERED: TUCKS PAD TP PRN (08:38)
[2017-07-10] MEDS ORDERED: BENADRYL PO PRN (08:38)
[2017-07-10] MEDS ORDERED: TYLENOL PO PRN (08:38)
--- NOTE | 2017-07-10 08:45 | Event Note ---
Date: 07/10/17 Agree with Ms Larios note. Pt is stable, awake, alert and oriented to self, place and time. Vitals stable, BP ok, DTR 0 (appropriate on Mag) No BP meds at present, Head CT was negative. Needs to complete Mag infusion and use breast pump. Will transfer to Mother Baby to complete Mag and for observation post Mag infusion.
[2017-07-10] MEDS ORDERED: SODIUM CHLORIDE FLUSH SYRINGE 10 ML IV SCH (09:00)
[2017-07-10] MEDS ORDERED: MOTRIN PO SCH (09:00)
[2017-07-10] MEDS ORDERED: MOTRIN PO ONE (09:05)
[2017-07-10 09:42] LABS: Hematocrit 36.3 % (30.3-42.9); Hemoglobin 11.9 gm/dl (10.1-14.3); Mean Corpuscular HGB Conc 33 % (30-34); Mean Corpuscular Hemoglobin 24 pg (28-32); Mean Corpuscular Volume 74 fl (79-97); Platelet Count 251 K/mm3 (140-440); Red Blood Count 4.89 M/mm3 (3.65-5.03)
[2017-07-10] MEDS: MOTRIN PO SCH ×3 (18:01→23:41)
--- NOTE | 2017-07-11 07:07 | Discharge Summary ---
Providers - Providers Date of Admission: 07/09/17 12:12 Date of discharge: 07/11/17 (pt asking to go home) Attending physician: MADISON OROSCO 07/09/17 17:35 Consult to Physician [CONS] Routine Consulting Provider: RAMIRO BELL Reason For Exam: seizure Place consult to:: CC INSPECTOR BALANCE WHEEL MOTION Notified:: Y If yes, spoke with:: DR OROSCO SPOKE WITH DR BELL Comment:: consult already done Primary care physician: RESEARCH AND DEVELOPMENT TECHNICIAN Hospitalization Reason for admission: other (seizure ) Discharge diagnosis: other ( eclamptic; ) Hospital course: pt presented to ED s/p with a c/o worse HUTSON ever, blurred vision One elevated BP of 140/100 Pt had a witnessed seizure. Pt received MGSO4 X 24 hours BPs have been wnl since event. Pt w/o complaint VSS No c/o HUTSON, blurred vision, chest pain. Doing well with no further s/sx of seizure P: d/c today with instructions RTO 1 week. Condition at discharge: Good Disposition: DC-01 TO HOME OR SELFCARE - Discharge Diagnoses (1) eclampsia Status: Acute Comment: RTO 1 week for BP check Plan - Provider Discharge Summary Activity: routine Diet: other (no salt) Instructions: routine Additional instructions: [] Smoking cessation referral if applicable(refer to patient education folder for contact #) [] Refer to [facility]'s [facility] Booklet Call your doctor immediately for: * Fever > 100.5 * Heavy vaginal bleeding ( >1 pad per hour) * Severe persistent headache * Shortness of breath * Reddened, hot, painful area to leg or breast * Drainage or odor from incision. * Keep incision clean and dry at all times and follow doctor's instructions regarding bathing/showering - Follow up plan Follow up: PRIMARY CARE, [Primary Care Provider] - 7 Days BETTY JULIAN CNM [Advanced Practice Nurse] - 7 Days (Please call [phone] to schedule appointment for one week. Call with any headache, not relieved with Tylenol, blurred vision, chest pain. Call with any concerns.)
[2017-07-11 12:06] VITALS: BP 123/71
== END 2017-07-11 09:22 | disposition home or self-care (01) | DRG 776 ==
LOC: ED 07:51 → 3A 12:12 → CC1 16:53 → OB 07-10 09:19
PROVIDERS: ADMIT Obstetrics & Gynecology; ATTEND Obstetrics & Gynecology
DX: O15.2 Eclampsia complicating the puerperium (principal); Z80.0 Family history of malignant neoplasm of digestive organs; F17.210 Nicotine dependence, cigarettes, uncomplicated; Z91.040 Latex allergy status
CPT/HCPCS: 36415; 70450; 80048; 80074; 80307; 81001; 83615; 83735; 84484; 85025; 85027; 85610; 85670; 85730; 93005; 93010; 96365; 96366; 96375; J1170; J2060; J2405; J3475

== ENCOUNTER 2017-07-16 02:35 | Emergency (ER) | payer MEDICAID ==
[2017-07-16] MEDS ORDERED: ASPIRIN PO ONE (04:50)
--- NOTE | 2017-07-16 05:29 | XRay Report ---
FINAL REPORT PROCEDURE: XR CHEST ROUTINE 2V TECHNIQUE: PA and lateral chest radiographs were obtained. CPT 71176 HISTORY: chest tightness fever and chills COMPARISON: No prior studies are available for comparison. FINDINGS: Heart: Normal. Mediastinum/Vessels: Normal. Lungs/Pleural space: Normal. Bony thorax: No acute osseous abnormality. Other: IMPRESSION: Normal examination.
[2017-07-16 05:58] LABS: Bacteria,Urine 3+ /HPF (Negative); Bilirubin,Urine NEG (Negative); Blood,Urine MOD (Negative); Color,Urine Yellow (Yellow); Nitrite,Urine NEG (Negative); Urobilinogen,Urine < 2.0 mg/dL (<2.0)
[2017-07-16 06:02] LABS: Basophils # (Auto) 0.1 K/mm3 (0.0-0.1); Basophils % (Auto) 0.6 % (0.0-1.8); Hematocrit 37.8 % (30.3-42.9); Hemoglobin 12.3 gm/dl (10.1-14.3); Lymphocytes # (Auto) 1.5 K/mm3 (1.2-5.4); Lymphocytes % (Auto) 11.1 % (13.4-35.0); Mean Corpuscular HGB Conc 32 % (30-34); Mean Corpuscular Volume 74 fl (79-97); Monocytes # (Auto) 1.2 K/mm3 (0.0-0.8); Monocytes % (Auto) 9.2 % (0.0-7.3); Platelet Count 268 K/mm3 (140-440); Red Cell Distribution Width 17.8 % (13.2-15.2)
[2017-07-16 06:03] LABS: Mean Corpuscular Hemoglobin 24 pg (28-32)
[2017-07-16 06:24] LABS: BUN/Creatinine Ratio 14; Blood Urea Nitrogen 11 mg/dL (7-17); Calcium 8.9 mg/dL (8.4-10.2); Hemolysis Index 6
[2017-07-16] MEDS ORDERED: TYLENOL PO ONE (21:45)
[2017-07-16] MEDS ORDERED: NACL 0.9% 1000 ML 1,000 ML ONE (21:57)
[2017-07-16] MEDS ORDERED: TYLENOL ONE (21:57)
[2017-07-16] MEDS ORDERED: ZOFRAN IV ONE (22:07)
[2017-07-16] MEDS ORDERED: NACL 0.9% 1000 ML 1,000 ML IV ONE (22:07)
[2017-07-16] MEDS ORDERED: ROCEPHIN/NS 1 GM/50 ML 1 GM/50 ML BAG IV ONE (22:07)
--- NOTE | 2017-07-16 22:13 | Emergency Department Report ---
ED General Adult HPI - General Chief complaint: Chest Pain Stated complaint: CHEST PAIN,ASTHMA Time Seen by Provider: 07/16/17 22:02 Source: patient Mode of arrival: Ambulatory Limitations: No Limitations - History of Present Illness Initial comments: Patient is 26 years old female status post vaginal delivery 2 weeks ago presented to the ER with fever, chest tightness, increased urinary frequency and dysuria. Patient stated that she vomited once today. Patient was recently admitted for eclampsia. Patient denied any seizure recently or headache. Severity scale (0 -10): 0 - Related Data Home Medications Medication Instructions Recorded Confirmed Last Taken No Known Home Medications [No 07/09/17 07/09/17 Unknown Reported Home Medications] Allergies Allergy/AdvReac Type Severity Reaction Status Date / Time latex AdvReac SKIN Verified 02/27/15 10:13 IRRITATION ED Review of Systems ROS: Stated complaint: CHEST PAIN,ASTHMA Other details as noted in HPI Comment: All other systems reviewed and negative Constitutional: fever. denies: chills Respiratory: denies: cough, orthopnea Cardiovascular: chest pain Gastrointestinal: nausea, vomiting. denies: abdominal pain, diarrhea, constipation, hematemesis, melena, hematochezia Genitourinary: urgency, dysuria, frequency. denies: hematuria, discharge Neurological: denies: headache ED Past Medical Hx - Past Medical History Previous Medical History?: Yes Hx Hypertension: No Hx Congestive Heart Failure: No Hx Diabetes: No Hx Deep Vein Thrombosis: No Hx Renal Disease: No Hx Sickle Cell Disease: Yes (trait) Hx Seizures: No Hx Asthma: Yes (last asthamatic attack- 6 yrs ago, Bronchitis) Hx COPD: No Hx HIV: No Additional medical history: HEART MURMUR, Vaginal delivery - Social History Smoking Status: Never Smoker - Medications Home Medications: Home Medications Medication Instructions Recorded Confirmed Last Taken Type No Known Home Medications [No 07/09/17 07/09/17 Unknown History Reported Home Medications] ED Physical Exam - General Limitations: No Limitations General appearance: alert, in no apparent distress - Head Head exam: Present: atraumatic, normocephalic, normal inspection - Eye Eye exam: Present: PERRL - ENT ENT exam: Present: mucous membranes dry - Neck Neck exam: Present: normal inspection, full ROM. Absent: tenderness, meningismus, lymphadenopathy, thyromegaly - Respiratory Respiratory exam: Present: normal lung sounds bilaterally. Absent: respiratory distress, wheezes, rales, rhonchi, stridor, chest wall tenderness, accessory muscle use, decreased breath sounds, prolonged expiratory - Cardiovascular Cardiovascular Exam: Present: tachycardia. Absent: bradycardia, irregular rhythm - GI/Abdominal GI/Abdominal exam: Present: soft, normal bowel sounds. Absent: distended, tenderness, guarding, rebound, rigid, organomegaly, mass, bruit, pulsatile mass , hernia - Back Exam Back exam: Present: normal inspection, full ROM. Absent: tenderness, CVA tenderness (R), CVA tenderness (L), muscle spasm, paraspinal tenderness, vertebral tenderness - Neurological Exam Neurological exam: Present: alert, oriented X3, CN II-XII intact, normal gait, reflexes normal. Absent: motor sensory deficit - Skin Skin exam: Present: warm, dry, intact ED Course Vital Signs 07/16/17 07/16/17 07/16/17 03:58 04:20 19:31 Temperature 99.6 F 99.6 F 99.9 F H Pulse Rate 127 H 126 H 114 H Respiratory 18 18 18 Rate Blood Pressure 115/71 115/71 125/60 Blood Pressure [Left] O2 Sat by Pulse 97 100 99 Oximetry 07/16/17 07/16/17 07/16/17 21:42 21:44 22:45 Temperature 100.0 F H Pulse Rate 117 H 102 H Respiratory 18 18 Rate Blood Pressure Blood Pressure 118/67 [Left] O2 Sat by Pulse 99 99 Oximetry ED Medical Decision Making - Lab Data Result diagrams: 07/16/17 05:26 07/16/17 05:26 - Radiology Data Radiology results: report reviewed Referring Physician: ED DOC Patient Name: DARIEN NGUYEN Date of : 1990 Sex: Female Report Date: 2017-07-16 Report Status: Finalized Findings [facility] [address] [place] [address] XRay Report Signed Patient: DARIEN NGUYEN MR#: [id number] : 1990 Acct:[id number] Age/Sex: 26 / F ADM Date: 07/16/17 Loc: ED Attending Dr: Ordering Physician: ED MD CLAIR Date of Service: 07/16/17 Procedure(s): XR chest routine 2V Accession Number(s): [id number] cc: ED DOC, Fluoro Time In Minutes: FINAL REPORT PROCEDURE: XR CHEST ROUTINE 2V TECHNIQUE: PA and lateral chest radiographs were obtained. CPT 28317 HISTORY: chest tightness fever and chills COMPARISON: No prior studies are available for comparison. FINDINGS: Heart: Normal. Mediastinum/Vessels: Normal. Lungs/Pleural space: Normal. Bony thorax: No acute osseous abnormality. Other: IMPRESSION: Normal examination. Transcribed By: [facility] Dictated By: PATRICIA CARBAJAL MD Electronically Authenticated By: PATRICIA CARBAJAL MD Signed Date/Time: 07/16/17124 DD/ 4 TD/TT: 07/16/17124 - Medical Decision Making Patient stated that she is feeling much better, no nausea no vomiting, no chest pain. Critical care attestation.: If time is entered above; I have spent that time in minutes in the direct care of this critically ill patient, excluding procedure time. ED Disposition Clinical Impression: Chest pain, UTI (urinary tract infection), Nausea and vomiting Disposition: - TO HOME OR SELFCARE Is pt being admited?: No Condition: Stable Instructions: Chest Pain (ED), Urinary Tract Infection in Women (ED) Referrals: JAVED LANDERS MD [Primary Care Provider] - 3-5 Days
[2017-07-16] MEDS ORDERED: cefTRIAXone 1 GM in NACL 0.9% 20 ML IV ONE (22:30)
[2017-07-17 00:28] VITALS: BP 126/70
== END 2017-07-17 00:28 | disposition home or self-care (01) ==
LOC: ED 02:35
DX: N39.0 Urinary tract infection, site not specified (principal); R11.2 Nausea with vomiting, unspecified; R07.9 Chest pain, unspecified; J45.909 Unspecified asthma, uncomplicated; D57.80 Other sickle-cell disorders without crisis; Z91.040 Latex allergy status
CPT/HCPCS: 36415; 71046; 80048; 81001; 84484; 85025; 87076; 87086; 87186; 87400; 93005; 93010; 96361; 96365; 96375; 99284; J0696; J2405; J7030

== ENCOUNTER 2017-08-16 08:51 | Day surgery (SDC) | payer MEDICAID ==
--- NOTE | 2017-08-12 14:35 | History and Physical Report ---
History of Present Illness Date of examination: 08/12/17 History of present illness: Patient has been reassessed/reevaluated. H&P has been reviewed. No interval changes. Patient desires sterilization.Discuss the permanency of sterilization. High risk of regret and 0.5 to 1% risk of failure. Discussed the different risk of abdominal versus vaginal approaches Patient desires laparoscopic tubal ligation Vital Signs: Patient Profile: 26 Years Old Female Height: 64 inches (162.56 cm) Weight: 161 pounds BMI: 27.63 Pt. in pain? no Menstrual History: LMP - Character: no menses since del; Current Method of Contraception: None Date of Last Pap Smear: 12/03/2016 Past History : 5 Term Births: 3 Premature Births: 0 Living Children: 3 Para: 3 Mult. Births: 0 Prev : 0 Aborta: 2 Elect. Ab: 1 Spont. Ab: 1 Ectopics: 0 # 1 Delivery date: 2008 Weeks Gestation: 10 Delivery type: SAB # 2 Delivery date: 01/25/2012 Weeks Gestation: 40 labor: no Delivery type: Vaginal Anesthesia type: epidural Delivery location: [facility] Sex: female weight: 6.61 Comments: # 3 Delivery date: 10/01/2015 Weeks Gestation: 40 labor: no Delivery type: Anesthesia type: epidural Delivery location: 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 of genital herpes: no Partner hx. of genital herpes: no Hx of STD: chlamydia Current Allergies: No known allergies Past Medical History: Asthma Scikle cell trait + Eclampsia 2018 Past Surgical History: D&C: (08/2016) Family History Summary: Other family member - Has No Family History of Breast Cancer - Entered On: 2014 Other family member - Has No Family History of Cervical Cancer - Entered On: Other family member - Has No Family History of Colon Cancer - Entered On: 2014 Other family member - Has No Family History of Diabetes - Entered On: 03/22/2015 Other family member - Has No Family History of Hypertension - Entered On: 2014 Other family member - Has No Family History of Ovarvian Cancer - Entered On: General Comments - FH: MGM- Stomach Cancer MGF- stomach Cancer Social History: negative 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 Risk Factors: Smoked Tobacco Use: Never smoker Smokeless Tobacco Use: Never Alcohol use: no PAP Smear History: Date of Last PAP Smear: 12/03/2016 Review of Systems General Denies fever, chills, sweats, anorexia, fatigue, weakness, malaise, weight loss and sleep disorder. Denies vaginal discharge, incontinence, dysuria, hematuria, urinary frequency, amenorrhea, menorrhagia, abnormal vaginal bleeding, pelvic pain, genital sores, decreased libido, painful periods, painful sex, urinary urgency, hot flashes, vaginal dryness, vaginal itching and vaginal odor. CV Denies chest pains, palpitations, syncope, dyspnea on exertion, orthopnea, PND and peripheral edema. Resp Denies cough, dyspnea at rest, excessive sputum, hemoptysis, wheezing and pleurisy. GI Denies nausea, vomiting, diarrhea, constipation, change in bowel habits, abdominal pain, melena, hematochezia, jaundice, gas/bloating, indigestion/ heartburn, dysphagia and odynophagia. Breast Denies left breast lump, right breast lump, nipple discharge, bloody discharge from nipple, breast pain, abnormal mammogram and breast enlargement. Psych Denies depression, anxiety, irritability and mood swings. Past History Past Medical History: other (See HPI) Past Surgical History: Other (See HPI) Social history: other (See HPI) Family history: other (See HPI) Medications and Allergies Allergies Allergy/AdvReac Type Severity Reaction Status Date / Time latex AdvReac SKIN Verified 08/09/17 11:35 IRRITATION Home Medications Medication Instructions Recorded Confirmed Last Taken Type Pnv,Calcium 72/Iron/Folic Acid 1 tab PO DAILY 02/09/18 02/09/18 Unknown History [Pnv Plus Multivit Tab] Exam - Physical Exam Narrative exam: HEENT: normocephalic, no lesions or deformities Skin no abnormal lesions or rashes Chest: respiratory effort normal, clear to auscultation Breasts: normal without skin changes or masses .Tatoo(s) are present CV: regular, normal S1-S2, no murmur, no rub, no gallop Abdomen: normal bowel sounds; soft, nontender Musculoskeletal: grossly normal ROM in joints, no joint tenderness or muscle weakness Neuro: no gross anomalities Extremities: no discoloration or edema 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 No evidence of cystocele or rectocele. Cervix: normal appearance, no lesions, no discharge Uterus: normal position, midline, mobile Adnexae: no masses or tenderness Rectovaginal: exam defered Results - Labs CBC & Chem 7: 08/16/17 08:40 Assessment and Plan - Patient Problems (1) Encounter for sterilization Current Visit: Yes Status: Acute Plan to address problem: Discuss the risks of the surgery including infection, bleeding possibly heavy enough to require a blood transfusion, possible damage to adjacent organs. Discuss permanent nature of the procedure and the 1% failure rate. Discuss of possibility of laparotomy needed (2) Asthma Current Visit: No Status: Chronic Qualifiers: Asthma severity: mild (3) Sickle cell trait Current Visit: No Status: Chronic
--- NOTE | 2017-08-16 09:23 | Anesthesia Consultation ---
Anesthesia Consult and Med Hx Date of service: 08/16/17 - Airway Anesthetic Teeth Evaluation: Good ROM Head & Neck: Adequate Mental/Hyoid Distance: Adequate Mallampati Class: Class II Intubation Access Assessment: Probably Good - Pulmonary Exam CTA: Yes - Cardiac Exam Cardiac Exam: RRR - Pre-Operative Health Status ASA Pre-Surgery Classification: ASA2 Proposed Anesthetic Plan: General - Pulmonary Hx Smoking: Yes (former) Hx Asthma: Yes (can't remember when last treated) COPD: No Hx Pneumonia: No - Cardiovascular System Hx Hypertension: No - Central Nervous System Hx Seizures: Yes (x2 07/2017 due to eclampsia) Hx Psychiatric Problems: No - Endocrine Hx Renal Disease: No Hx End Stage Renal Disease: No Hx Hypothyroidism: No Hx Hyperthyroidism: No - Hematic Hx Anemia: Yes Hx Sickle Cell Disease: Yes (Trait only) - Other Systems Hx Alcohol Use: No Hx Cancer: No Hx Obesity: No - Additional Comments Anesthesia Medical History Comments: active UTI on antibiotics- surgeon aware. Informed consent obtained
--- NOTE | 2017-08-16 09:23 | Anesthesia Day of Surgery ---
Anesthesia Day of Surgery - Day of Surgery Patient Examined: Yes Patient H&P Reviewed: Yes Patient is NPO: Yes
[2017-08-16] MEDS ORDERED: VERSED IV NR (10:00)
[2017-08-16] MEDS ORDERED: PEPCID IV NR (10:00)
[2017-08-16] MEDS ORDERED: NACL 0.9% 1000 ML 1,000 ML IV SCH (10:00)
[2017-08-16] MEDS ORDERED: TRANSDERM-SCOP TD NR (10:00)
[2017-08-16 10:08] LABS: Basophils % (Auto) 0.6 % (0.0-1.8); Eosinophils # (Auto) 0.2 K/mm3 (0.0-0.4); Eosinophils % (Auto) 2.7 % (0.0-4.3); Hematocrit 39.2 % (30.3-42.9); Hemoglobin 12.6 gm/dl (10.1-14.3); Lymphocytes # (Auto) 2.7 K/mm3 (1.2-5.4); Mean Corpuscular HGB Conc 32 % (30-34); Mean Corpuscular Volume 75 fl (79-97); Monocytes # (Auto) 0.5 K/mm3 (0.0-0.8); Monocytes % (Auto) 7.6 % (0.0-7.3); Platelet Count 259 K/mm3 (140-440); Red Blood Count 5.21 M/mm3 (3.65-5.03)
[2017-08-16] MEDS ORDERED: DIPRIVAN 10 MG/ML IV ONE (10:08)
[2017-08-16] MEDS ORDERED: DILAUDID ONE (10:09)
[2017-08-16 10:15] LABS: Mean Corpuscular Hemoglobin 24 pg (28-32); Red Cell Distribution Width 21.6 % (13.2-15.2)
[2017-08-16] MEDS ORDERED: MARCAINE 0.5% 30 ML INFILTRATI ONE (10:34)
[2017-08-16] MEDS ORDERED: DECADRON ONE (11:06)
[2017-08-16] MEDS ORDERED: ZOFRAN ONE (11:06)
[2017-08-16] MEDS ORDERED: XYLOCAINE MPF 2% ONE (11:06)
[2017-08-16] MEDS ORDERED: NACL 0.9% IR ONE (11:10)
[2017-08-16] MEDS ORDERED: MARCAINE 0.5% INFILTRATI ONE ×2 (11:10)
[2017-08-16] MEDS ORDERED: NEOSTIGMINE ONE (11:19)
[2017-08-16] MEDS ORDERED: ROBINUL ONE ×2 (11:19)
--- NOTE | 2017-08-16 11:27 | Operative Report ---
Operative Report Operative Report: Pre-operative diagnosis: Patient desires permanent sterilization Post-operative diagnosis: Same Procedure name(s): Laparoscopic bilateral tubal ligation with Falope-Rings Surgeon: Curt Krishna MD Tetryl Dissolver Operator: [] Anesthesia: General endotracheal EBL: Minimal Complications: None Findings: Patient with uterus approximately 8-10 weeks in size with normal fallopian tubes bilaterally Specimen(s): None Patient was brought in the operating room. General anesthesia was induced without difficulty. She was placed in dorsal lithotomy position. Prepped and draped in usual sterile manner. Her urinary bladder with was emptied with a red rubber catheter. Speculum placed in her vagina and Sargis uterine manipulator was placed for uterine manipulation. Attention was then switched to the patient's abdomen. An infra-umbilical incision was made with a scalpel. This incision was spread with a hemostat. A 5 mm trocar was placed in this incision while lifting high the abdominal wall. Intra-abdominal presence was verified directly with the laparoscope. The patient was then insufflated to approximately 3 L of CO2 gas. The patient's findings as noted above. An accessory puncture was made suprapubically. The 8 mm trocar was placed through this incision under direct visualization with no evidence of internal organ damage. Each of the fallopian tube were identified by its fimbriated end. A portion approximately 1-2 cm from each cornua was grasped with the Falope ring applicator. Falope-Rings were placed without any difficulty bilaterally. The left tube did have a laceration of the tube with good hemostasis At this time all instruments were removed. The patient was deinsufflated. The skin incisions were closed subcuticular with 4-0 Vicryl. Marcaine was given subcuticularly for postoperative pain relief. The patient tolerated procedure well. She was awakened in the operating room and accompanied to the recovery room in good condition.
[2017-08-16] MEDS ORDERED: ZEMURON IV ONE (11:30)
--- NOTE | 2017-08-16 11:30 | Short Stay Summary ---
Short Stay Documentation Date of service: 08/16/17 - History H&P: dictated Past Medical History: other (See HPI) Past Surgical History: Other (See HPI) Social history: other (See HPI) - Allergies and Medications Current Medications: Allergies latex Adverse Reaction (Verified 08/09/17 11:35) SKIN IRRITATION Home Medications Medication Instructions Recorded Confirmed Last Taken Type Pnv,Calcium 72/Iron/Folic Acid 1 tab PO DAILY 08/09/17 08/09/17 Unknown History [Pnv Plus Multivit Tab] oxyCODONE /ACETAMINOPHEN [Percocet 1 - 2 tab PO Q4H PRN #30 tablet 08/16/17 Unknown Rx 5/325 mg] Active Medications Famotidine (Pepcid) 20 mg IV PREOP NR Stop: 08/16/17 16:00 Last Admin: 08/16/17 10:06 Dose: 20 mg Sodium Chloride (Nacl 0.9% 1000 Ml) 1,000 mls @ 100 mls/hr IV DIRECT MAGDALENA Last Admin: 08/16/17 10:05 Dose: 100 mls/hr Midazolam HCl (Versed) 2 mg IV PREOP NR Stop: 08/16/17 23:59 Last Admin: 08/16/17 10:15 Dose: 2 mg Scopolamine (Transderm-Scop) 1 each TD PREOP NR Stop: 08/16/17 16:00 Last Admin: 08/16/17 10:00 Dose: 1 each - Brief post op/procedure progress note Date of procedure: 08/16/17 (seSee dictated operative note) Condition: stable - Hospital course Hospital course: Patient was admitted underwent the above him procedure without any complications. Patient will be discharged with follow-up in office in 1-2 weeks for postop check. - Disposition Condition at discharge: Good Disposition: DC-01 TO HOME OR SELFCARE - Discharge Diagnoses (1) Encounter for sterilization Status: Acute (2) Asthma Status: Chronic Qualifiers: Asthma severity: mild (3) Sickle cell trait Status: Chronic Short Stay Discharge Plan Activity: advance as tolerated Diet: regular Wound: open to air, keep clean and dry Additional Instructions: Patient office for fever chills nausea vomiting or pain uncontrolled by pain relief. Follow up with: JAVED LANDERS MD [Primary Care Provider] - 7 Days Prescriptions: oxyCODONE /ACETAMINOPHEN [Percocet 5/325 mg] 1 - 2 tab PO Q4H PRN #30 tablet PRN Reason: Pain, Moderate
[2017-08-16] MEDS ORDERED: DILAUDID IV PRN (12:02)
[2017-08-16] MEDS ORDERED: PERCOCET 5/325 PO PRN (12:02)
[2017-08-16 12:57] VITALS: BP 134/85
--- NOTE | 2017-08-16 14:33 | Post Anesthesia Evaluation ---
- Post Anesthesia Evaluation Patient Participated: Yes Airway Patent: Yes Stable Respiratory Function: Yes Nausea/Vomiting: No Temp > 96.8F: Yes Pain Manageable: Yes Adequeate Hydration: Yes Anesthesia Complications: No
== END 2017-08-16 13:05 | disposition home or self-care (01) ==
LOC: OR 08:51
PROVIDERS: ATTEND Obstetrics & Gynecology
DX: Z30.2 Encounter for sterilization (principal); N39.0 Urinary tract infection, site not specified; D57.3 Sickle-cell trait; J45.909 Unspecified asthma, uncomplicated; Z79.899 Other long term (current) drug therapy; Z87.891 Personal history of nicotine dependence; Z91.040 Latex allergy status
CPT/HCPCS: 36415; 58671; 81025; 85025; J1100; J1170; J2250; J2405; J2704; J2710; J7030

== ENCOUNTER 2018-10-15 12:50 | Emergency (ER) | payer MEDICAID ==
--- NOTE | 2018-10-15 12:58 | Emergency Department Report ---
Blank Doc - Documentation Documentation: This is a 28-year-old female that presents with chest pain with SOB. Also has some dry cough. This initial assessment/diagnostic orders/clinical plan/treatment(s) is/are subject to change based on patient's health status, clinical progression and re- assessment by fellow clinical providers in the ED. Further treatment and workup at subsequent clinical providers discretion. Patient/guardians urged not to elope from the ED as their condition may be serious if not clinically assessed and managed. Initial orders include: 1- Patient sent to [facility] for further evaluation and treatment 2- labs 3- EKG 4- CXR
[2018-10-15 13:03] VITALS: BP 129/88
[2018-10-15 13:18] LABS: Basophils # (Auto) 0.1 K/mm3 (0.0-0.1); Basophils % (Auto) 0.9 % (0.0-1.8); Eosinophils # (Auto) 0.1 K/mm3 (0.0-0.4); Eosinophils % (Auto) 1.8 % (0.0-4.3); Hematocrit 36.1 % (30.3-42.9); Hemoglobin 12.1 gm/dl (10.1-14.3); Lymphocytes # (Auto) 2.7 K/mm3 (1.2-5.4); Mean Corpuscular HGB Conc 34 % (30-34); Mean Corpuscular Volume 82 fl (79-97); Monocytes # (Auto) 0.6 K/mm3 (0.0-0.8); Platelet Count 259 K/mm3 (140-440); Red Cell Distribution Width 15.5 % (13.2-15.2)
[2018-10-15 13:38] LABS: BUN/Creatinine Ratio 18; Blood Urea Nitrogen 11 mg/dL (7-17); Calcium 8.9 mg/dL (8.4-10.2); Hemolysis Index 4
--- NOTE | 2018-10-15 14:33 | XRay Report ---
ROUTINE CHEST, TWO VIEWS: HISTORY: chest pain. The trachea, heart, mediastinal contour, lung sepulveda and bony thorax are unremarkable. IMPRESSION: Unremarkable chest x-ray. No change since 07/16/17.
--- NOTE | 2018-10-15 15:04 | Emergency Department Report ---
ED Chest Pain HPI - General Chief Complaint: Chest Pain Stated Complaint: COUGH/CHEST PAIN Time Seen by Provider: 10/15/18 12:57 Source: patient Mode of arrival: Ambulatory Limitations: No Limitations - History of Present Illness Initial Comments: This is 28. No prominent medical history who presents today complaining of intermittent persistent cough since yesterday. Patient states that she started experiencing right upper chest pain radiating to the back. She denies any traumatic injuries or falls. Severity scale (0 -10): 5 Quality: aching Consistency: intermittent Improves With: rest re: denies: vomting, dyspnea, sense of impending doom Other Symptoms: cough. denies: fever, syncope, rash, acid taste in mouth Treatments Prior to Arrival: none - Related Data Home Medications Medication Instructions Recorded Confirmed Last Taken Pnv,Calcium 72/Iron/Folic Acid 1 tab PO DAILY 08/09/17 08/09/17 Unknown [Pnv Plus Multivit Tab] Previous Rx's Medication Instructions Recorded Last Taken Type oxyCODONE /ACETAMINOPHEN [Percocet 1 - 2 tab PO Q4H PRN #30 tablet 08/16/17 Unknown Rx 5/325 mg] ALBUTEROL Inhaler (OR & NICU) 2 puff IH QID PRN #1 inhalation 10/15/18 Unknown Rx [Proair] Benzonatate [Tessalon Perles] 100 mg PO Q8HR #30 capsule 10/15/18 Unknown Rx Ibuprofen [Motrin] 800 mg PO Q8HR #20 tablet 10/15/18 Unknown Rx Allergies Allergy/AdvReac Type Severity Reaction Status Date / Time latex AdvReac SKIN Verified 08/09/17 11:35 IRRITATION Heart Score - HEART Score History: Slightly suspicious EKG: Normal Age: < 45 Risk factors: No known risk factors Troponin: < normal limit HEART Score: 0 ED Review of Systems ROS: Stated complaint: COUGH/CHEST PAIN Other details as noted in HPI Comment: All other systems reviewed and negative ED Past Medical Hx - Past Medical History Hx Hypertension: No Hx Congestive Heart Failure: No Hx Diabetes: No Hx Deep Vein Thrombosis: No Hx Renal Disease: No Hx Sickle Cell Disease: Yes (Trait only) Hx Seizures: Yes (x2 07/2017 due to eclampsia) Hx Asthma: Yes (can't remember when last treated) Hx COPD: No Hx HIV: No Additional medical history: HEART MURMUR, Vaginal delivery - Surgical History Additional Surgical History: tubiligation - Social History Smoking Status: Current Some Day Smoker Substance Use Type: Marijuana - Medications Home Medications: Home Medications Medication Instructions Recorded Confirmed Last Taken Type Pnv,Calcium 72/Iron/Folic Acid 1 tab PO DAILY 08/09/17 08/09/17 Unknown History [Pnv Plus Multivit Tab] oxyCODONE /ACETAMINOPHEN [Percocet 1 - 2 tab PO Q4H PRN #30 tablet 08/16/17 Unknown Rx 5/325 mg] ALBUTEROL Inhaler (OR & NICU) 2 puff IH QID PRN #1 inhalation 10/15/18 Unknown Rx [Proair] Benzonatate [Tessalon Perles] 100 mg PO Q8HR #30 capsule 10/15/18 Unknown Rx Ibuprofen [Motrin] 800 mg PO Q8HR #20 tablet 10/15/18 Unknown Rx ED Physical Exam - General Limitations: No Limitations General appearance: alert, in no apparent distress - Head Head exam: Present: atraumatic, normocephalic - Eye Eye exam: Present: normal appearance - ENT ENT exam: Present: mucous membranes moist - Neck Neck exam: Present: normal inspection, full ROM. Absent: tenderness, lymphadenopathy - Respiratory Respiratory exam: Present: normal lung sounds bilaterally. Absent: respiratory distress, wheezes, chest wall tenderness, accessory muscle use - Cardiovascular Cardiovascular Exam: Present: regular rate, normal rhythm. Absent: systolic murmur, diastolic murmur, rubs, gallop - GI/Abdominal GI/Abdominal exam: Present: soft, normal bowel sounds - Extremities Exam Extremities exam: Present: normal inspection - Back Exam Back exam: Present: normal inspection - Neurological Exam Neurological exam: Present: alert, oriented X3 - Psychiatric Psychiatric exam: Present: normal affect, normal mood - Skin Skin exam: Present: warm, dry, intact, normal color. Absent: rash ED Course Vital Signs 10/15/18 12:55 Temperature 98.4 F Pulse Rate 96 H Respiratory 16 Rate Blood Pressure 129/88 O2 Sat by Pulse 100 Oximetry HECTOR score - Hector Score Age > 65: (0) No Aspirin use within the Past 7 Days: (0) No 3 or more CAD Risk Factors: (0) No 2 or more Angina events in past 24 hrs: (0) No Known CAD with more than 50% Stenosis: (0) No Elevated Cardiac Markers: (0) No ST Deviation Greater than 0.5mm: (0) No HECTOR Score: 0 ED Medical Decision Making - Lab Data Result diagrams: 10/15/18 13:07 10/15/18 13:07 - Radiology Data Radiology results: report reviewed, image reviewed no acute cardiopulmonary process - Medical Decision Making 28-year-old female present with bronchitis. Was within normal limits, chest x-ray shows no acute finding Discussed findings with the patient. Patient is in no acute distress. She is respiratory distress as well. Discussed the patient in follow-up department physician. vital signs are normal Critical care attestation.: If time is entered above; I have spent that time in minutes in the direct care of this critically ill patient, excluding procedure time. ED Disposition Clinical Impression: Bronchitis Disposition: DC- TO HOME OR SELFCARE Is pt being admited?: No Does the pt Need Aspirin: No Condition: Stable Instructions: Chronic Bronchitis (ED), Acute Bronchitis (ED) Additional Instructions: Make sure to follow up with the primary care physician as discussed. Take all your medications as you've been prescribed. If you have any worsening symptoms or develop new symptoms please return to ED immediately. Prescriptions: Ibuprofen [Motrin] 800 mg PO Q8HR #20 tablet ALBUTEROL Inhaler (OR & NICU) [Proair] 2 puff IH QID PRN #1 inhalation PRN Reason: Shortness Of Breath Benzonatate [Tessalon Perles] 100 mg PO Q8HR #30 capsule Referrals: ORVILLE MCKEON MD [Primary Care Provider] - 3-5 Days Forms: Work/School Release Form(ED) Time of Disposition: 15:14
== END 2018-10-15 15:24 | disposition home or self-care (01) ==
LOC: ED 12:50
DX: J40 Bronchitis, not specified as acute or chronic (principal); F17.200 Nicotine dependence, unspecified, uncomplicated; F12.10 Cannabis abuse, uncomplicated
CPT/HCPCS: 36415; 71046; 80048; 84484; 84703; 85025; 93005; 93010

== ENCOUNTER 2018-11-25 16:32 | Emergency (ER) | payer MEDICAID ==
[2018-11-25 16:54] VITALS: BP 109/62
--- NOTE | 2018-11-25 16:57 | Emergency Department Report ---
Chief Complaint: Extremity Injury, Lower Stated Complaint: RT FOOT PAIN Time Seen by Provider: 11/25/18 16:53 - HPI History of Present Illness: This is 28 y.o. F. that presents to the ER with right foot pain. States she was walking at home when she twisted her foot. Pain increased with weight bearing while at work. - Exam Vital Signs: Vital Signs 11/25/18 16:53 Temperature 97.9 F Pulse Rate 80 Respiratory 16 Rate Blood Pressure 109/62 O2 Sat by Pulse 99 Oximetry MSE screening note: Focused history and physical exam performed. Due to findings the following was ordered: This initial assessment/diagnostic orders/clinical plan/treatment(s) is/are subject to change based on patient's health status, clinical progression and re- assessment by fellow clinical providers in the ED. Further treatment and workup at subsequent clinical providers discretion. Patient/guardians urged not to elope from the ED as their condition may be serious if not clinically assessed and managed. Initial orders include: 1- Patient sent to [facility] for further evaluation and treatment 2- XR right foot. ED Disposition for MSE Condition: Stable
--- NOTE | 2018-11-25 18:02 | XRay Report ---
PROCEDURE: XR FOOT 2V RT TECHNIQUE: AP and lateral radiographs of the right foot. HISTORY: r/o fracture COMPARISONS: None. FINDINGS: No fracture or dislocation. Normal mineralization. Normal alignment. No soft tissue abnormality. IMPRESSION: No acute right foot abnormality. This document is electronically signed by Cinthia Torres., Nov 25 2018 06:00:31 PM ET
--- NOTE | 2018-11-25 18:30 | Emergency Department Report ---
ED Lower Extremity HPI - General Chief Complaint: Extremity Injury, Lower Stated Complaint: RT FOOT PAIN Time Seen by Provider: 11/25/18 16:53 Source: patient Mode of arrival: Wheelchair Limitations: No Limitations - History of Present Illness Initial Comments: Patient is a 28-year-old female who comes to the emergency room after rolling her ankle. She is complaining of lateral right ankle pain. She is in a wheelchair and having difficulty ambulating. I attempted to ambulate her and she struggles because of pain when she does stand. Patient denies associated injury. Denies previous injury to the ankle. Movement makes the pain worse. Rest makes the pain better. She has taken no [id number] medicines at home for comfort. - Related Data Previous Rx's Medication Instructions Recorded Last Taken Type traMADol [Ultram] 50 mg PO Q6HR PRN #12 tablet 11/25/18 Unknown Rx Allergies Allergy/AdvReac Type Severity Reaction Status Date / Time latex AdvReac SKIN Verified 11/25/18 16:36 IRRITATION ED Review of Systems ROS: Stated complaint: RT FOOT PAIN Other details as noted in HPI Comment: All other systems reviewed and negative ED Past Medical Hx - Past Medical History Hx Hypertension: No Hx Congestive Heart Failure: No Hx Diabetes: No Hx Deep Vein Thrombosis: No Hx Renal Disease: No Hx Sickle Cell Disease: Yes (Trait only) Hx Seizures: Yes (x2 07/2017 due to eclampsia) Hx Asthma: Yes Hx COPD: No Hx HIV: No Additional medical history: HEART MURMUR - Surgical History Additional Surgical History: tubal ligation - Social History Smoking Status: Never Smoker Substance Use Type: None - Medications Home Medications: Home Medications Medication Instructions Recorded Confirmed Last Taken Type traMADol [Ultram] 50 mg PO Q6HR PRN #12 tablet 11/25/18 Unknown Rx ED Physical Exam - General Limitations: No Limitations General appearance: alert, in no apparent distress - Head Head exam: Present: atraumatic - Eye Eye exam: Present: PERRL Pupils: Present: normal accommodation - ENT ENT exam: Present: mucous membranes moist - Neck Neck exam: Present: normal inspection - Respiratory Respiratory exam: Present: normal lung sounds bilaterally - Cardiovascular Cardiovascular Exam: Present: regular rate - GI/Abdominal GI/Abdominal exam: Present: soft - Rectal Rectal exam: Present: deferred - Extremities Exam Extremities exam: Present: normal inspection, full ROM - Expanded Lower Extremity Exam Right Lower Leg exam: Present: normal inspection Ankle exam: Present: swelling (mild lat). Absent: abrasion, laceration, ecchymosis, deformity, crepidus, dislocation, erythema - Back Exam Back exam: Present: normal inspection, full ROM - Neurological Exam Neurological exam: Present: alert, oriented X3 - Psychiatric Psychiatric exam: Present: normal affect, normal mood ED Course Vital Signs 11/25/18 16:53 Temperature 97.9 F Pulse Rate 80 Respiratory 16 Rate Blood Pressure 109/62 O2 Sat by Pulse 99 Oximetry ED Lower Extremity MDM - Radiology Data Radiology results: report reviewed, image reviewed - Medical Decision Making xray negative gait limited with pain sanjeev crutches dc home with ortho follow up and RICE therapy Vital Signs 11/25/18 16:53 Temperature 97.9 F Pulse Rate 80 Respiratory 16 Rate Blood Pressure 109/62 O2 Sat by Pulse 99 Oximetry Critical care attestation.: If time is entered above; I have spent that time in minutes in the direct care of this critically ill patient, excluding procedure time. ED Disposition Clinical Impression: Ankle sprain Disposition: DC-01 TO HOME OR SELFCARE Is pt being admited?: No Does the pt Need Aspirin: No Condition: Stable Instructions: Ankle Sprain (ED) Additional Instructions: ice rest elevate sanjeev crutches meds as ordered follow up ortho this week referral below Prescriptions: traMADol [Ultram] 50 mg PO Q6HR PRN #12 tablet PRN Reason: Pain Referrals: KHANH DANGELO MD [Staff Physician] - 3-5 Days BROXTON ORVILLE ESCOBEDO MD [Primary Care Provider] - 3-5 Days Forms: Work/School Release Form(ED) Time of Disposition: 18:30
[2018-11-25] MEDS ORDERED: IBUPROFEN PO ONE (18:34)
== END 2018-11-25 18:56 | disposition home or self-care (01) ==
LOC: ED 16:32
DX: S93.401A Sprain of unspecified ligament of right ankle, initial encounter (principal); J45.909 Unspecified asthma, uncomplicated; D57.3 Sickle-cell trait; Z98.51 Tubal ligation status; Z91.040 Latex allergy status; X50.9XXA Other and unspecified overexertion or strenuous movements or postures, initial encounter; Y93.89 Activity, other specified; Y92.89 Other specified places as the place of occurrence of the external cause; Y99.8 Other external cause status

== ENCOUNTER 2019-10-15 05:35 | Emergency (ER) | payer SELFPAY ==
[2019-10-15] MEDS ORDERED: ONDANSETRON 4 MG/2 ML INJ IV ONE (06:00)
[2019-10-15] MEDS ORDERED: SODIUM CHLORIDE 0.9% 1000 ML 1,000 ML IV ONE (06:00)
[2019-10-15] MEDS ORDERED: MORPHINE 4 MG/1 ML INJ IV ONE (06:00)
[2019-10-15 06:05] LABS: Basophils % (Auto) 0.5 % (0.0-1.8); Eosinophils # (Auto) 0.1 K/mm3 (0.0-0.4); Eosinophils % (Auto) 1.4 % (0.0-4.3); Hematocrit 36.3 % (30.3-42.9); Hemoglobin 12.4 gm/dl (10.1-14.3); Lymphocytes # (Auto) 2.3 K/mm3 (1.2-5.4); Lymphocytes % (Auto) 30.9 % (13.4-35.0); Mean Corpuscular HGB Conc 34 % (30-34); Mean Corpuscular Volume 83 fl (79-97); Monocytes # (Auto) 0.5 K/mm3 (0.0-0.8); Monocytes % (Auto) 6.9 % (0.0-7.3); Platelet Count 206 K/mm3 (140-440); Red Blood Count 4.39 M/mm3 (3.65-5.03); Red Cell Distribution Width 15.2 % (13.2-15.2)
[2019-10-15 06:22] LABS: Alanine Aminotransferase 8 units/L (7-56); Albumin 4.1 g/dL (3.9-5); BUN/Creatinine Ratio 13; Blood Urea Nitrogen 9 mg/dL (7-17); Calcium 8.8 mg/dL (8.4-10.2); Hemolysis Index 21
[2019-10-15 07:05] LABS: Bacteria,Urine 1+ /HPF (Negative); Bilirubin,Urine NEG (Negative); Blood,Urine MOD (Negative); Color,Urine Yellow (Yellow); Protein,Urine <15 mg/dL mg/dL (Negative); Urobilinogen,Urine < 2.0 mg/dL (<2.0)
[2019-10-15 07:11] LABS: RBC,Urine > 182.0 /HPF (0.0-6.0)
--- NOTE | 2019-10-15 07:19 | Cat Scan Report ---
CT ABDOMEN AND PELVIS WITH CONTRAST INDICATION / CLINICAL INFORMATION: Sudden onset of R.L.Q. abdominal pain. TECHNIQUE: Axial CT images were obtained through the abdomen and pelvis after IV contrast. All CT scans at this location are performed using CT dose reduction for ALARA by means of automated exposure control. COMPARISON: None available. FINDINGS: LOWER CHEST: No significant abnormality. LIVER: No significant abnormality. GALLBLADDER: No significant abnormality. BILE DUCTS: No significant abnormality. PANCREAS: No significant abnormality. SPLEEN: No significant abnormality. ADRENALS: No significant abnormality. RIGHT KIDNEY and URETER: No significant abnormality. LEFT KIDNEY and URETER: No significant abnormality. STOMACH and SMALL BOWEL: No significant abnormality. COLON: No significant abnormality. APPENDIX: No significant abnormality. PERITONEUM: Trace free fluid in the cul-de-sac. No free air. No fluid collection. LYMPH NODES: No significant adenopathy. AORTA and ARTERIES: No significant abnormality. IVC and VEINS: No significant abnormality. URINARY BLADDER: No significant abnormality. REPRODUCTIVE ORGANS: 1.5 cm right ovarian cyst. Lateral tubal ligation clips. ADDITIONAL FINDINGS: None. SKELETAL SYSTEM: No significant abnormality. IMPRESSION: 1. 1.5 cm right ovarian cyst with trace free fluid in the pelvis. No routine follow-up is needed. 2. No inflammatory process or bowel obstruction. Signer Name: Maite García MD Signed: 10/15/2019 7:14 AM Workstation Name: [email or web address]
--- NOTE | 2019-10-15 07:28 | Emergency Department Report ---
ED Abdominal Pain HPI - General Chief Complaint: Abdominal Pain Stated Complaint: ABD PAIN Time Seen by Provider: 10/15/19 07:27 Source: patient Mode of arrival: Ambulatory Limitations: No Limitations - History of Present Illness Initial Comments: 29 YO AA FEMALE COMES TO ER WITH ACUTE ONSET RLQ PAIN THIS AM. NOW RESOLVED. NO N/V/D. NO FEVER OR CHILLS. WORK UP COMPLETED BY NIGHT ALL- NOT DISPO'D HOME Complaint: abdominal pain -: hour(s) Location: RLQ Radiation: none Migration to: no migration Severity: severe Severity scale (0 -10): 4 Improves With: nothing Worsens With: nothing Associated Symptoms: denies other symptoms - Related Data Previous Rx's Medication Instructions Recorded Last Taken Type Ibuprofen [Motrin] 800 mg PO Q8HR PRN #30 tablet 10/15/19 Unknown Rx Allergies Allergy/AdvReac Type Severity Reaction Status Date / Time latex AdvReac SKIN Verified 11/25/18 16:36 IRRITATION ED Review of Systems ROS: Stated complaint: ABD PAIN Other details as noted in HPI Comment: All other systems reviewed and negative ED Past Medical Hx - Past Medical History Hx Hypertension: No Hx Congestive Heart Failure: No Hx Diabetes: No Hx Deep Vein Thrombosis: No Hx Renal Disease: No Hx Sickle Cell Disease: Yes (Trait only) Hx Seizures: Yes (x2 07/2017 due to eclampsia) Hx Asthma: Yes Hx COPD: No Hx HIV: No Additional medical history: HEART MURMUR - Surgical History Past Surgical History?: Yes Additional Surgical History: tubal ligation - Family History Family history: no significant - Social History Smoking Status: Never Smoker Substance Use Type: Alcohol, Marijuana - Medications Home Medications: Home Medications Medication Instructions Recorded Confirmed Last Taken Type Ibuprofen [Motrin] 800 mg PO Q8HR PRN #30 tablet 10/15/19 Unknown Rx ED Physical Exam - General Limitations: No Limitations General appearance: alert, in no apparent distress - Head Head exam: Present: atraumatic, normocephalic - Eye Eye exam: Present: normal appearance - ENT ENT exam: Present: mucous membranes moist - Neck Neck exam: Present: normal inspection - Respiratory Respiratory exam: Present: normal lung sounds bilaterally. Absent: respiratory distress - Cardiovascular Cardiovascular Exam: Present: regular rate, normal rhythm. Absent: systolic murmur, diastolic murmur, rubs, gallop - GI/Abdominal GI/Abdominal exam: Present: soft, normal bowel sounds - Extremities Exam Extremities exam: Present: normal inspection - Back Exam Back exam: Present: normal inspection - Neurological Exam Neurological exam: Present: alert, oriented X3 - Psychiatric Psychiatric exam: Present: normal affect, normal mood - Skin Skin exam: Present: warm, dry, intact, normal color. Absent: rash ED Course Vital Signs 10/15/19 10/15/19 10/15/19 05:37 07:39 07:40 Temperature 98.5 F 98.2 F Pulse Rate 72 54 L Respiratory Rate Blood Pressure 104/55 Blood Pressure 118/58 [Left] O2 Sat by Pulse 98 100 100 Oximetry ED Medical Decision Making - Lab Data Result diagrams: 10/15/19 05:50 10/15/19 05:50 - Radiology Data Radiology results: report reviewed, image reviewed - Medical Decision Making Lab Results 10/15/19 10/15/19 10/15/19 Range/Units 05:50 05:50 05:50 WBC 7.5 (4.5-11.0) K/mm3 RBC 4.39 (3.65-5.03) M/mm3 Hgb 12.4 (10.1-14.3) gm/dl Hct 36.3 (30.3-42.9) % MCV 83 (79-97) fl MCH 28 (28-32) pg MCHC 34 (30-34) % RDW 15.2 (13.2-15.2) % Plt Count 206 (140-440) K/mm3 Lymph % (Auto) 30.9 (13.4-35.0) % [place] % (Auto) 6.9 (0.0-7.3) % Eos % (Auto) 1.4 (0.0-4.3) % Baso % (Auto) 0.5 (0.0-1.8) % Lymph # 2.3 (1.2-5.4) K/mm3 [place] # 0.5 (0.0-0.8) K/mm3 Eos # 0.1 (0.0-0.4) K/mm3 Baso # 0.0 (0.0-0.1) K/mm3 Seg Neutrophils % 60.3 (40.0-70.0) % Seg Neutrophils # 4.5 (1.8-7.7) K/mm3 Sodium 133 L (137-145) mmol/L Potassium 4.0 (3.6-5.0) mmol/L Chloride 100.4 (98-107) mmol/L Carbon Dioxide 18 L (22-30) mmol/L Anion Gap 19 mmol/L BUN 9 (7-17) mg/dL Creatinine 0.7 (0.7-1.2) mg/dL Estimated GFR > 60 ml/min BUN/Creatinine Ratio 13 % Glucose 108 H (65-100) mg/dL Calcium 8.8 (8.4-10.2) mg/dL Total Bilirubin 0.20 (0.1-1.2) mg/dL AST 15 (5-40) units/L ALT 8 (7-56) units/L Alkaline Phosphatase 46 (35-129) units/L Total Protein 7.8 (6.3-8.2) g/dL Albumin 4.1 (3.9-5) g/dL Albumin/Globulin Ratio 1.1 % Lipase 22 (13-60) units/L HCG, Qual Negative (Negative) Urine Color (Yellow) Urine Turbidity (Clear) Urine pH (5.0-7.0) Ur Specific [place] (1.003-1.030) Urine Protein (Negative) mg/dL Urine Glucose (UA) (Negative) mg/dL Urine Ketones (Negative) mg/dL Urine Blood (Negative) Urine Nitrite (Negative) Urine Bilirubin (Negative) Urine Urobilinogen (<2.0) mg/dL Ur Leukocyte Esterase (Negative) Urine WBC (Auto) (0.0-6.0) /HPF Urine RBC (Auto) (0.0-6.0) /HPF U Epithel Cells (Auto) (0-13.0) /HPF Urine Bacteria (Auto) (Negative) /HPF 10/15/19 Range/Units 06:47 WBC (4.5-11.0) K/mm3 RBC (3.65-5.03) M/mm3 Hgb (10.1-14.3) gm/dl Hct (30.3-42.9) % MCV (79-97) fl MCH (28-32) pg MCHC (30-34) % RDW (13.2-15.2) % Plt Count (140-440) K/mm3 Lymph % (Auto) (13.4-35.0) % [place] % (Auto) (0.0-7.3) % Eos % (Auto) (0.0-4.3) % Baso % (Auto) (0.0-1.8) % Lymph # (1.2-5.4) K/mm3 [place] # (0.0-0.8) K/mm3 Eos # (0.0-0.4) K/mm3 Baso # (0.0-0.1) K/mm3 Seg Neutrophils % (40.0-70.0) % Seg Neutrophils # (1.8-7.7) K/mm3 Sodium (137-145) mmol/L Potassium (3.6-5.0) mmol/L Chloride (98-107) mmol/L Carbon Dioxide (22-30) mmol/L Anion Gap mmol/L BUN (7-17) mg/dL Creatinine (0.7-1.2) mg/dL Estimated GFR ml/min BUN/Creatinine Ratio % Glucose (65-100) mg/dL Calcium (8.4-10.2) mg/dL Total Bilirubin (0.1-1.2) mg/dL AST (5-40) units/L ALT (7-56) units/L Alkaline Phosphatase (35-129) units/L Total Protein (6.3-8.2) g/dL Albumin (3.9-5) g/dL Albumin/Globulin Ratio % Lipase (13-60) units/L HCG, Qual (Negative) Urine Color Yellow (Yellow) Urine Turbidity Hazy (Clear) Urine pH 7.0 (5.0-7.0) Ur Specific [place] 1.011 (1.003-1.030) Urine Protein <15 mg/dl (Negative) mg/dL Urine Glucose (UA) Neg (Negative) mg/dL Urine Ketones Neg (Negative) mg/dL Urine Blood Mod (Negative) Urine Nitrite Neg (Negative) Urine Bilirubin Neg (Negative) Urine Urobilinogen < 2.0 (<2.0) mg/dL Ur Leukocyte Esterase Neg (Negative) Urine WBC (Auto) 1.0 (0.0-6.0) /HPF Urine RBC (Auto) > 182.0 (0.0-6.0) /HPF U Epithel Cells (Auto) < 1.0 (0-13.0) /HPF Urine Bacteria (Auto) 1+ (Negative) /HPF Vital Signs 10/15/19 05:37 Temperature 98.5 F Pulse Rate 72 Respiratory 16 Rate Blood Pressure 104/55 O2 Sat by Pulse 98 Oximetry LABS NOTED LABS NOTED PREG NEG CT NOTED DC HOME WITH DC PLAN OF CARE. PAIN FREE. AMBULATORY AND NON ILL ON DC. FOLLOW UP PROVIDED. - Differential Diagnosis RO PREG/ RO APPY/ RO OVARIAN CYST Critical care attestation.: If time is entered above; I have spent that time in minutes in the direct care of this critically ill patient, excluding procedure time. ED Disposition Clinical Impression: Ovarian cyst Disposition: DC-01 TO HOME OR SELFCARE Is pt being admited?: No Does the pt Need Aspirin: No Condition: Stable Instructions: Ovarian Cyst (ED) Additional Instructions: follow up with obgyn Prescriptions: Ibuprofen [Motrin] 800 mg PO Q8HR PRN #30 tablet PRN Reason: Pain, Moderate (4-6) Referrals: PRIMARY CARE, [Primary Care Provider] - 3-5 Days KRISTINE HAYES MD [Staff Physician] - 3-5 Days Time of Disposition: 07:28
[2019-10-15 07:40] VITALS: BP 118/58
== END 2019-10-15 07:48 | disposition home or self-care (01) ==
LOC: ED 05:35
DX: N83.209 Unspecified ovarian cyst, unspecified side (principal); D57.1 Sickle-cell disease without crisis; R56.9 Unspecified convulsions; J45.909 Unspecified asthma, uncomplicated; F12.10 Cannabis abuse, uncomplicated; Z79.1 Long term (current) use of non-steroidal anti-inflammatories (NSAID); Z98.51 Tubal ligation status; Z88.8 Allergy status to other drugs, medicaments and biological substances
CPT/HCPCS: 36415; 74177; 80053; 81001; 83690; 84703; 85025; 96374; 96375; 99284; J2270; J2405; J7030; Q9967